=== PATIENT | female | born 1960 | race Caucasian/White ===

== ENCOUNTER → 2023-11-15 13:12 | Outpatient (REF) | payer MEDICARE, OTHER, SELFPAY ==
[2023-11-15 10:09] LABS: % Basophils 0.3 % (0-2); % Eosinophils 1.9 % (0-6); % Lymphocytes 13.6 % (20.5-51.1); % Monocytes 9.8 % (1.7-9.3); % Neutrophils 74.4 % (42.2-75.2); Absolute Eosinophils 0.1 10^3/uL (0-0.7); Absolute Lymphocytes 0.8 10^3/uL (1.2-3.4); Absolute Monocytes 0.6 10^3/uL (0.1-0.6); Absolute Neutrophils 4.3 10^3/uL (1.4-6.5); Hematocrit 37.6 % (37.0-47.0); Hemoglobin 12.5 g/dL (12.0-16.0); Mean Corp Hgb Conc. 33.2 g/dL (33.0-37.0); Mean Corpuscular Volume 99.2 fL (81.0-99.0); Mean Platelet Volume 10.6 fL (7.4-10.4); Platelet Count 142 10^3/uL (130-400); Red Blood Cell Count 3.79 10^6/uL (4.20-5.40); Red Cell Dist. Width 13.4 % (11.5-14.5); White Blood Cell Count 5.8 10^3/uL (4.8-10.8)
[2023-11-15 10:50] LABS: ALT (SGPT) 30 U/L (0-35); AST (SGOT) 54 U/L (14-36); Albumin 4.1 g/dl (3.5-5.0); Alkaline Phosphatase 157 U/L (38-126); Blood Urea Nitrogen 14 mg/dl (7-17); Calcium 9.2 mg/dl (8.4-10.2); Carbon Dioxide 26 mmol/L (22-30); Chloride 108 mmol/L (98-107); Glucose 99 mg/dl (70-99); Potassium 3.9 mmol/L (3.5-5.1); Sodium 139 mmol/L (135-145); Total Bilirubin 1.1 mg/dl (0.2-1.3); Total Protein 7.5 g/dl (6.3-8.2); eGFR > 60.00
== END ==
LOC: OIDL 13:12
PROVIDERS: ATTENDING PHYSICIAN Internal Medicine Hematology & Oncology
DX: C50.912 Malignant neoplasm of unspecified site of left female breast (principal)
CPT/HCPCS: 80053; 85025

== ENCOUNTER → 2023-12-06 09:54 | Outpatient (REF) | payer MEDICARE, OTHER, SELFPAY ==
[2023-12-06 10:04] LABS: % Basophils 0.5 % (0-2); % Eosinophils 3.5 % (0-6); % Lymphocytes 21.6 % (20.5-51.1); % Monocytes 9.7 % (1.7-9.3); % Neutrophils 64.7 % (42.2-75.2); Absolute Eosinophils 0.1 10^3/uL (0-0.7); Absolute Lymphocytes 0.8 10^3/uL (1.2-3.4); Absolute Monocytes 0.4 10^3/uL (0.1-0.6); Absolute Neutrophils 2.4 10^3/uL (1.4-6.5); Hematocrit 36.5 % (37.0-47.0); Hemoglobin 12.3 g/dL (12.0-16.0); Mean Corp Hgb Conc. 33.7 g/dL (33.0-37.0); Mean Corpuscular Hgb 32.8 pg (27.0-31.0); Mean Corpuscular Volume 97.3 fL (81.0-99.0); Mean Platelet Volume 10.5 fL (7.4-10.4); Platelet Count 130 10^3/uL (130-400); Red Blood Cell Count 3.75 10^6/uL (4.20-5.40); Red Cell Dist. Width 13.9 % (11.5-14.5); White Blood Cell Count 3.7 10^3/uL (4.8-10.8)
[2023-12-06 10:52] LABS: ALT (SGPT) 36 U/L (0-35); AST (SGOT) 55 U/L (14-36); Albumin 4.1 g/dl (3.5-5.0); Alkaline Phosphatase 149 U/L (38-126); Blood Urea Nitrogen 15 mg/dl (7-17); Calcium 9.1 mg/dl (8.4-10.2); Carbon Dioxide 23 mmol/L (22-30); Chloride 109 mmol/L (98-107); Glucose 109 mg/dl (70-99); Potassium 3.7 mmol/L (3.5-5.1); Sodium 139 mmol/L (135-145); Total Protein 7.3 g/dl (6.3-8.2); eGFR > 60.00
== END ==
LOC: OIDL 09:54
PROVIDERS: ATTENDING PHYSICIAN Internal Medicine Hematology & Oncology
DX: C50.912 Malignant neoplasm of unspecified site of left female breast (principal); C77.0 Secondary and unspecified malignant neoplasm of lymph nodes of head, face and neck
CPT/HCPCS: 80053; 85025

== ENCOUNTER → 2023-12-27 11:44 | Outpatient (REF) | payer MEDICARE, OTHER, SELFPAY ==
[2023-12-27 09:32] LABS: % Basophils 0.5 % (0-2); % Eosinophils 4.3 % (0-6); % Immature Granulocytes 0.3 % (0-0.5); % Lymphocytes 27.9 % (20.5-51.1); % Monocytes 12.3 % (1.7-9.3); % Neutrophils 54.7 % (42.2-75.2); Absolute Eosinophils 0.2 10^3/uL (0-0.7); Absolute Monocytes 0.5 10^3/uL (0.1-0.6); Hematocrit 37.1 % (37.0-47.0); Hemoglobin 12.6 g/dL (12.0-16.0); Mean Corpuscular Hgb 32.8 pg (27.0-31.0); Mean Corpuscular Volume 96.6 fL (81.0-99.0); Mean Platelet Volume 9.9 fL (7.4-10.4); Platelet Count 135 10^3/uL (130-400); Red Blood Cell Count 3.84 10^6/uL (4.20-5.40); Red Cell Dist. Width 14.5 % (11.5-14.5); White Blood Cell Count 3.7 10^3/uL (4.8-10.8)
[2023-12-27 10:16] LABS: ALT (SGPT) 49 U/L (0-35); AST (SGOT) 64 U/L (14-36); Albumin 4.2 g/dl (3.5-5.0); Alkaline Phosphatase 164 U/L (38-126); Blood Urea Nitrogen 12 mg/dl (7-17); Calcium 9.4 mg/dl (8.4-10.2); Carbon Dioxide 26 mmol/L (22-30); Chloride 107 mmol/L (98-107); Glucose 106 mg/dl (70-99); Potassium 3.7 mmol/L (3.5-5.1); Sodium 138 mmol/L (135-145); Total Bilirubin 1.2 mg/dl (0.2-1.3); Total Protein 7.4 g/dl (6.3-8.2); eGFR > 60.00
== END ==
LOC: OIDL 11:44
PROVIDERS: ATTENDING PHYSICIAN Internal Medicine Hematology & Oncology
DX: C50.912 Malignant neoplasm of unspecified site of left female breast (principal)
CPT/HCPCS: 80053; 85025

== ENCOUNTER → 2024-01-17 16:04 | Outpatient (REF) | payer MEDICARE, OTHER, SELFPAY ==
[2024-01-17 09:30] LABS: % Basophils 0.5 % (0-2); % Eosinophils 5.9 % (0-6); % Immature Granulocytes 0.3 % (0-0.5); % Lymphocytes 21.2 % (20.5-51.1); % Monocytes 13.1 % (1.7-9.3); Absolute Eosinophils 0.2 10^3/uL (0-0.7); Absolute Lymphocytes 0.8 10^3/uL (1.2-3.4); Absolute Monocytes 0.5 10^3/uL (0.1-0.6); Absolute Neutrophils 2.2 10^3/uL (1.4-6.5); Hematocrit 36.4 % (37.0-47.0); Hemoglobin 12.4 g/dL (12.0-16.0); Mean Corp Hgb Conc. 34.1 g/dL (33.0-37.0); Mean Corpuscular Hgb 32.9 pg (27.0-31.0); Mean Corpuscular Volume 96.6 fL (81.0-99.0); Mean Platelet Volume 10.2 fL (7.4-10.4); Platelet Count 127 10^3/uL (130-400); Red Blood Cell Count 3.77 10^6/uL (4.20-5.40); Red Cell Dist. Width 15.5 % (11.5-14.5); White Blood Cell Count 3.7 10^3/uL (4.8-10.8)
[2024-01-17 10:03] LABS: ALT (SGPT) 42 U/L (0-35); AST (SGOT) 58 U/L (14-36); Albumin 4.1 g/dl (3.5-5.0); Alkaline Phosphatase 170 U/L (38-126); Blood Urea Nitrogen 11 mg/dl (7-17); Calcium 9.4 mg/dl (8.4-10.2); Carbon Dioxide 25 mmol/L (22-30); Chloride 106 mmol/L (98-107); Glucose 94 mg/dl (70-99); Potassium 3.9 mmol/L (3.5-5.1); Sodium 137 mmol/L (135-145); Total Bilirubin 1.3 mg/dl (0.2-1.3); Total Protein 7.2 g/dl (6.3-8.2); eGFR > 60.00
== END ==
LOC: OIDL 16:04
PROVIDERS: ATTENDING PHYSICIAN Internal Medicine Hematology & Oncology
DX: C50.912 Malignant neoplasm of unspecified site of left female breast (principal)
CPT/HCPCS: 80053; 85025

== ENCOUNTER → 2024-01-26 10:45 | Outpatient (REF) | payer MEDICARE, OTHER, SELFPAY | LOC: RCS 10:45 | PROVIDERS: ATTENDING PHYSICIAN Internal Medicine Hematology & Oncology | DX: Z51.11 Encounter for antineoplastic chemotherapy (principal); C50.912 Malignant neoplasm of unspecified site of left female breast; C77.0 Secondary and unspecified malignant neoplasm of lymph nodes of head, face and neck; C78.00 Secondary malignant neoplasm of unspecified lung; D50.9 Iron deficiency anemia, unspecified; D51.9 Vitamin B12 deficiency anemia, unspecified | CPT/HCPCS: 93306 ==

== ENCOUNTER → 2024-02-07 10:42 | Outpatient (REF) | payer MEDICARE, OTHER, SELFPAY ==
[2024-02-07 10:44] LABS: % Basophils 0.5 % (0-2); % Eosinophils 3.5 % (0-6); % Monocytes 14.1 % (1.7-9.3); % Neutrophils 54.9 % (42.2-75.2); Absolute Eosinophils 0.1 10^3/uL (0-0.7); Absolute Lymphocytes 1.1 10^3/uL (1.2-3.4); Absolute Monocytes 0.6 10^3/uL (0.1-0.6); Absolute Neutrophils 2.2 10^3/uL (1.4-6.5); Hemoglobin 11.5 g/dL (12.0-16.0); Mean Corp Hgb Conc. 33.8 g/dL (33.0-37.0); Mean Corpuscular Hgb 32.9 pg (27.0-31.0); Mean Corpuscular Volume 97.1 fL (81.0-99.0); Mean Platelet Volume 10.3 fL (7.4-10.4); Platelet Count 139 10^3/uL (130-400); Red Cell Dist. Width 16.7 % (11.5-14.5)
[2024-02-07 11:34] LABS: ALT (SGPT) 19 U/L (0-35); AST (SGOT) 28 U/L (14-36); Albumin 3.8 g/dl (3.5-5.0); Alkaline Phosphatase 111 U/L (38-126); Blood Urea Nitrogen 22 mg/dl (7-17); Calcium 9.8 mg/dl (8.4-10.2); Carbon Dioxide 26 mmol/L (22-30); Chloride 106 mmol/L (98-107); Glucose 81 mg/dl (70-99); Potassium 4.7 mmol/L (3.5-5.1); Sodium 139 mmol/L (135-145); Total Bilirubin 0.3 mg/dl (0.2-1.3); Total Protein 6.2 g/dl (6.3-8.2); eGFR > 60.00
== END ==
LOC: OIDL 10:42
PROVIDERS: ATTENDING PHYSICIAN Nurse Practitioner Adult Health
DX: C50.912 Malignant neoplasm of unspecified site of left female breast (principal); C77.0 Secondary and unspecified malignant neoplasm of lymph nodes of head, face and neck; C78.00 Secondary malignant neoplasm of unspecified lung; D50.9 Iron deficiency anemia, unspecified; D51.9 Vitamin B12 deficiency anemia, unspecified
CPT/HCPCS: 80053; 85025

== ENCOUNTER → 2024-02-28 13:43 | Outpatient (REF) | payer MEDICARE, OTHER, SELFPAY ==
[2024-02-28 09:50] LABS: % Basophils 0.2 % (0-2); % Eosinophils 2.4 % (0-6); % Immature Granulocytes 0.2 % (0-0.5); % Lymphocytes 15.7 % (20.5-51.1); % Monocytes 10.6 % (1.7-9.3); % Neutrophils 70.9 % (42.2-75.2); Absolute Eosinophils 0.1 10^3/uL (0-0.7); Absolute Lymphocytes 0.8 10^3/uL (1.2-3.4); Absolute Monocytes 0.5 10^3/uL (0.1-0.6); Absolute Neutrophils 3.6 10^3/uL (1.4-6.5); Hematocrit 32.4 % (37.0-47.0); Hemoglobin 11.1 g/dL (12.0-16.0); Mean Corp Hgb Conc. 34.3 g/dL (33.0-37.0); Mean Corpuscular Hgb 33.6 pg (27.0-31.0); Mean Corpuscular Volume 98.2 fL (81.0-99.0); Mean Platelet Volume 10.9 fL (7.4-10.4); Platelet Count 146 10^3/uL (130-400); Red Cell Dist. Width 15.8 % (11.5-14.5); White Blood Cell Count 5.1 10^3/uL (4.8-10.8)
[2024-02-28 10:26] LABS: ALT (SGPT) 37 U/L (0-35); AST (SGOT) 48 U/L (14-36); Albumin 3.8 g/dl (3.5-5.0); Alkaline Phosphatase 112 U/L (38-126); Blood Urea Nitrogen 15 mg/dl (7-17); Calcium 8.9 mg/dl (8.4-10.2); Carbon Dioxide 25 mmol/L (22-30); Chloride 108 mmol/L (98-107); Glucose 130 mg/dl (70-99); Potassium 4.1 mmol/L (3.5-5.1); Sodium 141 mmol/L (135-145); Total Bilirubin 1.1 mg/dl (0.2-1.3); eGFR > 60.00
== END ==
LOC: OIDL 13:43
PROVIDERS: ATTENDING PHYSICIAN Internal Medicine Hematology & Oncology
DX: C50.912 Malignant neoplasm of unspecified site of left female breast (principal)
CPT/HCPCS: 80053; 85025

== ENCOUNTER → 2024-04-11 14:00 | Outpatient (REF) | payer MEDICARE, OTHER, SELFPAY ==
[2024-04-11 14:04] LABS: % Basophils 0.6 % (0-2); % Eosinophils 3.3 % (0-6); % Immature Granulocytes 0.2 % (0-0.5); % Lymphocytes 22.6 % (20.5-51.1); % Monocytes 11.5 % (1.7-9.3); % Neutrophils 61.8 % (42.2-75.2); Absolute Eosinophils 0.2 10^3/uL (0-0.7); Absolute Lymphocytes 1.2 10^3/uL (1.2-3.4); Absolute Monocytes 0.6 10^3/uL (0.1-0.6); Absolute Neutrophils 3.2 10^3/uL (1.4-6.5); Hematocrit 37.4 % (37.0-47.0); Hemoglobin 12.2 g/dL (12.0-16.0); Mean Corp Hgb Conc. 32.6 g/dL (33.0-37.0); Mean Corpuscular Hgb 32.5 pg (27.0-31.0); Mean Corpuscular Volume 99.7 fL (81.0-99.0); Mean Platelet Volume 10.6 fL (7.4-10.4); Platelet Count 119 10^3/uL (130-400); Red Blood Cell Count 3.75 10^6/uL (4.20-5.40); Red Cell Dist. Width 13.9 % (11.5-14.5); White Blood Cell Count 5.2 10^3/uL (4.8-10.8)
[2024-04-11 14:47] LABS: ALT (SGPT) 32 U/L (0-35); AST (SGOT) 52 U/L (14-36); Albumin 4.1 g/dl (3.5-5.0); Alkaline Phosphatase 146 U/L (38-126); Blood Urea Nitrogen 15 mg/dl (7-17); Calcium 9.2 mg/dl (8.4-10.2); Carbon Dioxide 26 mmol/L (22-30); Chloride 105 mmol/L (98-107); Glucose 94 mg/dl (70-99); Potassium 3.9 mmol/L (3.5-5.1); Sodium 139 mmol/L (135-145); Total Bilirubin 1.1 mg/dl (0.2-1.3); eGFR > 60.00
== END ==
LOC: OIDL 14:00
PROVIDERS: ATTENDING PHYSICIAN Internal Medicine Hematology & Oncology
DX: C50.912 Malignant neoplasm of unspecified site of left female breast (principal)
CPT/HCPCS: 80053; 85025

== ENCOUNTER → 2024-04-26 08:17 | Outpatient (REF) | payer MEDICARE, OTHER, SELFPAY | LOC: HWRAD 08:17 | PROVIDERS: ATTENDING PHYSICIAN Internal Medicine Hematology & Oncology; FAMILY PHYSICIAN Family Medicine | DX: C50.912 Malignant neoplasm of unspecified site of left female breast (principal); C77.0 Secondary and unspecified malignant neoplasm of lymph nodes of head, face and neck; C78.00 Secondary malignant neoplasm of unspecified lung; D50.9 Iron deficiency anemia, unspecified; D51.9 Vitamin B12 deficiency anemia, unspecified | CPT/HCPCS: 70491; 71260; 74177; Q9967 ==

== ENCOUNTER → 2024-05-01 16:24 | Outpatient (REF) | payer MEDICARE, OTHER, SELFPAY ==
[2024-05-01 13:19] LABS: % Basophils 0.5 % (0-2); % Eosinophils 3.6 % (0-6); % Immature Granulocytes 0.2 % (0-0.5); % Lymphocytes 26.3 % (20.5-51.1); % Neutrophils 57.4 % (42.2-75.2); Absolute Eosinophils 0.2 10^3/uL (0-0.7); Absolute Lymphocytes 1.1 10^3/uL (1.2-3.4); Absolute Monocytes 0.5 10^3/uL (0.1-0.6); Absolute Neutrophils 2.4 10^3/uL (1.4-6.5); Hemoglobin 12.3 g/dL (12.0-16.0); Mean Corp Hgb Conc. 33.2 g/dL (33.0-37.0); Mean Corpuscular Hgb 32.4 pg (27.0-31.0); Mean Corpuscular Volume 97.4 fL (81.0-99.0); Platelet Count 122 10^3/uL (130-400); White Blood Cell Count 4.2 10^3/uL (4.8-10.8)
[2024-05-01 14:03] LABS: ALT (SGPT) 34 U/L (0-35); AST (SGOT) 49 U/L (14-36); Albumin 4.1 g/dl (3.5-5.0); Alkaline Phosphatase 147 U/L (38-126); Blood Urea Nitrogen 17 mg/dl (7-17); Calcium 9.4 mg/dl (8.4-10.2); Carbon Dioxide 28 mmol/L (22-30); Chloride 107 mmol/L (98-107); Glucose 105 mg/dl (70-99); Potassium 4.1 mmol/L (3.5-5.1); Sodium 140 mmol/L (135-145); Total Bilirubin 0.8 mg/dl (0.2-1.3); eGFR > 60.00
== END ==
LOC: OIDL 16:24
PROVIDERS: ATTENDING PHYSICIAN Internal Medicine Hematology & Oncology
DX: C50.912 Malignant neoplasm of unspecified site of left female breast (principal)
CPT/HCPCS: 80053; 85025

== ENCOUNTER → 2024-05-23 12:34 | Outpatient (REF) | payer MEDICARE, OTHER, SELFPAY ==
[2024-05-23 12:43] LABS: % Basophils 0.5 % (0-2); % Eosinophils 3.3 % (0-6); % Immature Granulocytes 0.2 % (0-0.5); % Lymphocytes 24.6 % (20.5-51.1); % Monocytes 12.8 % (1.7-9.3); % Neutrophils 58.6 % (42.2-75.2); Absolute Eosinophils 0.1 10^3/uL (0-0.7); Absolute Monocytes 0.5 10^3/uL (0.1-0.6); Absolute Neutrophils 2.5 10^3/uL (1.4-6.5); Hematocrit 35.7 % (37.0-47.0); Hemoglobin 12.5 g/dL (12.0-16.0); Mean Corpuscular Hgb 32.8 pg (27.0-31.0); Mean Corpuscular Volume 93.7 fL (81.0-99.0); Mean Platelet Volume 10.7 fL (7.4-10.4); Nucleated Red Blood Cells % 0 %; Platelet Count 122 10^3/uL (130-400); Red Blood Cell Count 3.81 10^6/uL (4.20-5.40); Red Cell Dist. Width 14.6 % (11.5-14.5); White Blood Cell Count 4.2 10^3/uL (4.8-10.8)
[2024-05-23 12:55] LABS: ALT (SGPT) 36 U/L (0-35); AST (SGOT) 56 U/L (14-36); Albumin 4.3 g/dl (3.5-5.0); Alkaline Phosphatase 161 U/L (38-126); Blood Urea Nitrogen 11 mg/dl (7-17); Calcium 9.2 mg/dl (8.4-10.2); Carbon Dioxide 26 mmol/L (22-30); Chloride 106 mmol/L (98-107); Glucose 120 mg/dl (70-99); Potassium 3.9 mmol/L (3.5-5.1); Sodium 143 mmol/L (135-145); Total Protein 7.2 g/dl (6.3-8.2); eGFR > 60.00
== END ==
LOC: OIDL 12:34
PROVIDERS: ATTENDING PHYSICIAN Internal Medicine Hematology & Oncology
DX: C50.912 Malignant neoplasm of unspecified site of left female breast (principal)
CPT/HCPCS: 80053; 85025

== ENCOUNTER → 2024-06-12 16:39 | Outpatient (REF) | payer MEDICARE, OTHER, SELFPAY ==
[2024-06-12 11:07] LABS: % Basophils 0.3 % (0-2); % Eosinophils 3.6 % (0-6); % Immature Granulocytes 0.3 % (0-0.5); % Monocytes 13.9 % (1.7-9.3); % Neutrophils 56.9 % (42.2-75.2); Absolute Eosinophils 0.1 10^3/uL (0-0.7); Absolute Lymphocytes 0.9 10^3/uL (1.2-3.4); Absolute Monocytes 0.5 10^3/uL (0.1-0.6); Absolute Neutrophils 2.1 10^3/uL (1.4-6.5); Hematocrit 35.3 % (37.0-47.0); Mean Corpuscular Hgb 32.3 pg (27.0-31.0); Mean Corpuscular Volume 95.1 fL (81.0-99.0); Mean Platelet Volume 10.4 fL (7.4-10.4); Platelet Count 136 10^3/uL (130-400); Red Blood Cell Count 3.71 10^6/uL (4.20-5.40); Red Cell Dist. Width 15.5 % (11.5-14.5); White Blood Cell Count 3.6 10^3/uL (4.8-10.8)
[2024-06-12 12:05] LABS: ALT (SGPT) 50 U/L (0-35); AST (SGOT) 68 U/L (14-36); Albumin 4.2 g/dl (3.5-5.0); Alkaline Phosphatase 136 U/L (38-126); Blood Urea Nitrogen 11 mg/dl (7-17); Calcium 9.1 mg/dl (8.4-10.2); Carbon Dioxide 26 mmol/L (22-30); Chloride 104 mmol/L (98-107); Glucose 105 mg/dl (70-99); Potassium 4.3 mmol/L (3.5-5.1); Sodium 141 mmol/L (135-145); Total Bilirubin 1.1 mg/dl (0.2-1.3); Total Protein 6.9 g/dl (6.3-8.2); eGFR > 60.00
== END ==
LOC: OIDL 16:39
PROVIDERS: ATTENDING PHYSICIAN Internal Medicine Hematology & Oncology
DX: C50.912 Malignant neoplasm of unspecified site of left female breast (principal)
CPT/HCPCS: 80053; 85025

== ENCOUNTER → 2024-07-04 15:30 | Outpatient (REF) | payer MEDICARE, OTHER, SELFPAY ==
[2024-07-04 10:47] LABS: % Basophils 0.5 % (0-2); % Immature Granulocytes 0.2 % (0-0.5); % Lymphocytes 21.1 % (20.5-51.1); % Neutrophils 65.2 % (42.2-75.2); Absolute Eosinophils 0.1 10^3/uL (0-0.7); Absolute Lymphocytes 0.9 10^3/uL (1.2-3.4); Absolute Monocytes 0.4 10^3/uL (0.1-0.6); Absolute Neutrophils 2.6 10^3/uL (1.4-6.5); Hematocrit 36.3 % (37.0-47.0); Hemoglobin 12.2 g/dL (12.0-16.0); Mean Corp Hgb Conc. 33.6 g/dL (33.0-37.0); Mean Corpuscular Hgb 32.4 pg (27.0-31.0); Mean Corpuscular Volume 96.5 fL (81.0-99.0); Mean Platelet Volume 10.6 fL (7.4-10.4); Platelet Count 117 10^3/uL (130-400); Red Blood Cell Count 3.76 10^6/uL (4.20-5.40); Red Cell Dist. Width 16.3 % (11.5-14.5)
[2024-07-04 11:51] LABS: ALT (SGPT) 46 U/L (0-35); AST (SGOT) 69 U/L (14-36); Alkaline Phosphatase 164 U/L (38-126); Blood Urea Nitrogen 10 mg/dl (7-17); Calcium 9.1 mg/dl (8.4-10.2); Carbon Dioxide 24 mmol/L (22-30); Chloride 108 mmol/L (98-107); Glucose 109 mg/dl (70-99); Potassium 3.7 mmol/L (3.5-5.1); Sodium 142 mmol/L (135-145); Total Bilirubin 1.6 mg/dl (0.2-1.3); Total Protein 6.8 g/dl (6.3-8.2); eGFR > 60.00
== END ==
LOC: OIDL 15:30
PROVIDERS: ATTENDING PHYSICIAN Internal Medicine Hematology & Oncology
DX: C50.912 Malignant neoplasm of unspecified site of left female breast (principal); C77.0 Secondary and unspecified malignant neoplasm of lymph nodes of head, face and neck; C78.00 Secondary malignant neoplasm of unspecified lung; D50.9 Iron deficiency anemia, unspecified; D51.9 Vitamin B12 deficiency anemia, unspecified
CPT/HCPCS: 80053; 85025

== ENCOUNTER → 2024-07-25 08:54 | Outpatient (REF) | payer MEDICARE, OTHER, SELFPAY ==
[2024-07-25 08:56] LABS: % Basophils 0.3 % (0-2); % Eosinophils 4.6 % (0-6); % Immature Granulocytes 0.3 % (0-0.5); % Lymphocytes 26.3 % (20.5-51.1); % Monocytes 12.7 % (1.7-9.3); % Neutrophils 55.8 % (42.2-75.2); Absolute Eosinophils 0.2 10^3/uL (0-0.7); Absolute Monocytes 0.5 10^3/uL (0.1-0.6); Absolute Neutrophils 2.1 10^3/uL (1.4-6.5); Hematocrit 34.4 % (37.0-47.0); Hemoglobin 11.5 g/dL (12.0-16.0); Mean Corp Hgb Conc. 33.4 g/dL (33.0-37.0); Mean Corpuscular Volume 98.6 fL (81.0-99.0); Mean Platelet Volume 10.9 fL (7.4-10.4); Platelet Count 123 10^3/uL (130-400); Red Blood Cell Count 3.49 10^6/uL (4.20-5.40); Red Cell Dist. Width 16.2 % (11.5-14.5); White Blood Cell Count 3.7 10^3/uL (4.8-10.8)
[2024-07-25 10:52] LABS: ALT (SGPT) 55 U/L (0-35); AST (SGOT) 69 U/L (14-36); Albumin 3.9 g/dl (3.5-5.0); Alkaline Phosphatase 152 U/L (38-126); Blood Urea Nitrogen 13 mg/dl (7-17); Carbon Dioxide 24 mmol/L (22-30); Chloride 108 mmol/L (98-107); Glucose 91 mg/dl (70-99); Potassium 3.7 mmol/L (3.5-5.1); Sodium 144 mmol/L (135-145); Total Bilirubin 1.2 mg/dl (0.2-1.3); eGFR > 60.00
== END ==
LOC: OIDL 08:54
PROVIDERS: ATTENDING PHYSICIAN Internal Medicine Hematology & Oncology
DX: C50.912 Malignant neoplasm of unspecified site of left female breast (principal); C77.0 Secondary and unspecified malignant neoplasm of lymph nodes of head, face and neck; C78.00 Secondary malignant neoplasm of unspecified lung; D50.9 Iron deficiency anemia, unspecified; D51.9 Vitamin B12 deficiency anemia, unspecified; K76.6 Portal hypertension
CPT/HCPCS: 80053; 85025

== ENCOUNTER → 2024-08-15 14:54 | Outpatient (REF) | payer MEDICARE, OTHER, SELFPAY ==
[2024-08-15 10:30] LABS: % Basophils 0.8 % (0-2); % Eosinophils 4.9 % (0-6); % Lymphocytes 24.9 % (20.5-51.1); % Monocytes 11.9 % (1.7-9.3); % Neutrophils 57.5 % (42.2-75.2); Absolute Eosinophils 0.2 10^3/uL (0-0.7); Absolute Lymphocytes 0.9 10^3/uL (1.2-3.4); Absolute Monocytes 0.4 10^3/uL (0.1-0.6); Absolute Neutrophils 2.1 10^3/uL (1.4-6.5); Hematocrit 35.5 % (37.0-47.0); Hemoglobin 11.8 g/dL (12.0-16.0); Mean Corp Hgb Conc. 33.2 g/dL (33.0-37.0); Mean Corpuscular Hgb 33.8 pg (27.0-31.0); Mean Corpuscular Volume 101.7 fL (81.0-99.0); Mean Platelet Volume 10.7 fL (7.4-10.4); Platelet Count 127 10^3/uL (130-400); Red Blood Cell Count 3.49 10^6/uL (4.20-5.40); Red Cell Dist. Width 15.7 % (11.5-14.5); White Blood Cell Count 3.7 10^3/uL (4.8-10.8)
[2024-08-15 11:21] LABS: ALT (SGPT) 46 U/L (0-35); AST (SGOT) 60 U/L (14-36); Albumin 3.9 g/dl (3.5-5.0); Alkaline Phosphatase 150 U/L (38-126); Blood Urea Nitrogen 11 mg/dl (7-17); Calcium 8.8 mg/dl (8.4-10.2); Carbon Dioxide 24 mmol/L (22-30); Chloride 107 mmol/L (98-107); Glucose 99 mg/dl (70-99); Potassium 4.2 mmol/L (3.5-5.1); Sodium 142 mmol/L (135-145); Total Bilirubin 1.1 mg/dl (0.2-1.3); Total Protein 6.9 g/dl (6.3-8.2); eGFR > 60.00
== END ==
LOC: OIDL 14:54
PROVIDERS: ATTENDING PHYSICIAN Internal Medicine Hematology & Oncology
DX: C50.912 Malignant neoplasm of unspecified site of left female breast (principal)
CPT/HCPCS: 80053; 85025

== ENCOUNTER → 2024-08-29 11:14 | Outpatient (REF) | payer MEDICARE, OTHER, SELFPAY ==
[2024-08-29 08:49] LABS: % Basophils 0.4 % (0-2); % Eosinophils 2.8 % (0-6); % Immature Granulocytes 0.2 % (0-0.5); % Monocytes 11.3 % (1.7-9.3); % Neutrophils 62.3 % (42.2-75.2); Absolute Eosinophils 0.1 10^3/uL (0-0.7); Absolute Lymphocytes 1.1 10^3/uL (1.2-3.4); Absolute Monocytes 0.5 10^3/uL (0.1-0.6); Absolute Neutrophils 2.9 10^3/uL (1.4-6.5); Hematocrit 39.1 % (37.0-47.0); Hemoglobin 13.1 g/dL (12.0-16.0); Mean Corp Hgb Conc. 33.5 g/dL (33.0-37.0); Mean Corpuscular Hgb 32.7 pg (27.0-31.0); Mean Corpuscular Volume 97.5 fL (81.0-99.0); Platelet Count 130 10^3/uL (130-400); Red Blood Cell Count 4.01 10^6/uL (4.20-5.40); Red Cell Dist. Width 13.8 % (11.5-14.5); White Blood Cell Count 4.6 10^3/uL (4.8-10.8)
[2024-08-29 10:04] LABS: ALT (SGPT) 32 U/L (0-35); AST (SGOT) 51 U/L (14-36); Albumin 4.1 g/dl (3.5-5.0); Alkaline Phosphatase 149 U/L (38-126); Blood Urea Nitrogen 11 mg/dl (7-17); Calcium 9.1 mg/dl (8.4-10.2); Carbon Dioxide 29 mmol/L (22-30); Chloride 106 mmol/L (98-107); Glucose 92 mg/dl (70-99); Potassium 3.8 mmol/L (3.5-5.1); Sodium 142 mmol/L (135-145); Total Protein 7.3 g/dl (6.3-8.2); eGFR > 60.00
== END ==
LOC: OIDL 11:14
PROVIDERS: ATTENDING PHYSICIAN Internal Medicine Hematology & Oncology
DX: C50.912 Malignant neoplasm of unspecified site of left female breast (principal)
CPT/HCPCS: 80053; 85025

== ENCOUNTER → 2024-10-31 12:14 | Outpatient (REF) | payer MEDICARE, OTHER, SELFPAY ==
[2024-10-31 09:46] LABS: % Basophils 0.5 % (0-2); % Eosinophils 2.5 % (0-6); % Lymphocytes 21.7 % (20.5-51.1); % Neutrophils 66.3 % (42.2-75.2); Absolute Eosinophils 0.2 10^3/uL (0-0.7); Absolute Lymphocytes 1.3 10^3/uL (1.2-3.4); Absolute Monocytes 0.5 10^3/uL (0.1-0.6); Absolute Neutrophils 3.9 10^3/uL (1.4-6.5); Hematocrit 41.8 % (37.0-47.0); Hemoglobin 13.5 g/dL (12.0-16.0); Mean Corp Hgb Conc. 32.3 g/dL (33.0-37.0); Mean Corpuscular Hgb 30.5 pg (27.0-31.0); Mean Corpuscular Volume 94.6 fL (81.0-99.0); Mean Platelet Volume 10.6 fL (7.4-10.4); Platelet Count 129 10^3/uL (130-400); Red Blood Cell Count 4.42 10^6/uL (4.20-5.40); Red Cell Dist. Width 13.4 % (11.5-14.5); White Blood Cell Count 5.9 10^3/uL (4.8-10.8)
[2024-10-31 10:44] LABS: ALT (SGPT) 28 U/L (0-35); AST (SGOT) 46 U/L (14-36); Albumin 4.3 g/dl (3.5-5.0); Alkaline Phosphatase 143 U/L (38-126); Blood Urea Nitrogen 15 mg/dl (7-17); Calcium 9.3 mg/dl (8.4-10.2); Carbon Dioxide 26 mmol/L (22-30); Chloride 103 mmol/L (98-107); Glucose 96 mg/dl (70-99); Potassium 3.8 mmol/L (3.5-5.1); Sodium 139 mmol/L (135-145); Total Bilirubin 1.4 mg/dl (0.2-1.3); Total Protein 7.3 g/dl (6.3-8.2); eGFR > 60.00
== END ==
LOC: OIDL 12:14
PROVIDERS: ATTENDING PHYSICIAN Internal Medicine Hematology & Oncology
DX: C50.912 Malignant neoplasm of unspecified site of left female breast (principal)
CPT/HCPCS: 80053; 85025

== ENCOUNTER → 2024-11-15 10:40 | Outpatient (REF) | payer MEDICARE, OTHER, SELFPAY | LOC: RCS 10:40 | PROVIDERS: ATTENDING PHYSICIAN Internal Medicine Hematology & Oncology; FAMILY PHYSICIAN Family Medicine | DX: C78.00 Secondary malignant neoplasm of unspecified lung (principal); C50.912 Malignant neoplasm of unspecified site of left female breast; C77.0 Secondary and unspecified malignant neoplasm of lymph nodes of head, face and neck | CPT/HCPCS: 93306 ==

== ENCOUNTER → 2024-11-21 13:26 | Outpatient (REF) | payer MEDICARE, OTHER, SELFPAY ==
[2024-11-21 11:20] LABS: % Basophils 0.2 % (0-2); % Eosinophils 3.1 % (0-6); % Immature Granulocytes 0.2 % (0-0.5); % Lymphocytes 27.4 % (20.5-51.1); % Monocytes 13.3 % (1.7-9.3); % Neutrophils 55.8 % (42.2-75.2); Absolute Eosinophils 0.1 10^3/uL (0-0.7); Absolute Lymphocytes 1.2 10^3/uL (1.2-3.4); Absolute Monocytes 0.6 10^3/uL (0.1-0.6); Absolute Neutrophils 2.3 10^3/uL (1.4-6.5); Hematocrit 39.5 % (37.0-47.0); Mean Corp Hgb Conc. 32.9 g/dL (33.0-37.0); Mean Corpuscular Hgb 30.4 pg (27.0-31.0); Mean Corpuscular Volume 92.5 fL (81.0-99.0); Mean Platelet Volume 9.9 fL (7.4-10.4); Platelet Count 152 10^3/uL (130-400); Red Blood Cell Count 4.27 10^6/uL (4.20-5.40); Red Cell Dist. Width 14.4 % (11.5-14.5); White Blood Cell Count 4.2 10^3/uL (4.8-10.8)
[2024-11-21 11:42] LABS: ALT (SGPT) 34 U/L (0-35); AST (SGOT) 45 U/L (14-36); Alkaline Phosphatase 157 U/L (38-126); Blood Urea Nitrogen 11 mg/dl (7-17); Calcium 9.1 mg/dl (8.4-10.2); Carbon Dioxide 25 mmol/L (22-30); Chloride 106 mmol/L (98-107); Glucose 142 mg/dl (70-99); Potassium 3.8 mmol/L (3.5-5.1); Sodium 138 mmol/L (135-145); Total Bilirubin 0.9 mg/dl (0.2-1.3); Total Protein 7.5 g/dl (6.3-8.2); eGFR > 60.00
== END ==
LOC: OIDL 13:26
PROVIDERS: ATTENDING PHYSICIAN Internal Medicine Hematology & Oncology
DX: C50.912 Malignant neoplasm of unspecified site of left female breast (principal)
CPT/HCPCS: 80053; 85025

== ENCOUNTER → 2024-12-12 14:42 | Outpatient (REF) | payer MEDICARE, OTHER, SELFPAY ==
[2024-12-12 14:48] LABS: % Basophils 0.3 % (0-2); % Eosinophils 5.2 % (0-6); % Lymphocytes 28.1 % (20.5-51.1); % Neutrophils 51.4 % (42.2-75.2); Absolute Eosinophils 0.2 10^3/uL (0-0.7); Absolute Lymphocytes 1.1 10^3/uL (1.2-3.4); Absolute Monocytes 0.6 10^3/uL (0.1-0.6); Hematocrit 37.3 % (37.0-47.0); Hemoglobin 12.6 g/dL (12.0-16.0); Mean Corp Hgb Conc. 33.8 g/dL (33.0-37.0); Mean Corpuscular Hgb 30.7 pg (27.0-31.0); Mean Platelet Volume 10.7 fL (7.4-10.4); Platelet Count 132 10^3/uL (130-400); Red Cell Dist. Width 15.9 % (11.5-14.5); White Blood Cell Count 3.8 10^3/uL (4.8-10.8)
[2024-12-12 15:44] LABS: ALT (SGPT) 35 U/L (0-35); AST (SGOT) 48 U/L (14-36); Albumin 4.4 g/dl (3.5-5.0); Alkaline Phosphatase 192 U/L (38-126); Blood Urea Nitrogen 15 mg/dl (7-17); Calcium 9.1 mg/dl (8.4-10.2); Carbon Dioxide 25 mmol/L (22-30); Chloride 104 mmol/L (98-107); Glucose 94 mg/dl (70-99); Sodium 136 mmol/L (135-145); Total Bilirubin 0.9 mg/dl (0.2-1.3); Total Protein 7.5 g/dl (6.3-8.2); eGFR > 60.00
== END ==
LOC: OIDL 14:42
PROVIDERS: ATTENDING PHYSICIAN Internal Medicine Hematology & Oncology
DX: C50.912 Malignant neoplasm of unspecified site of left female breast (principal); C77.0 Secondary and unspecified malignant neoplasm of lymph nodes of head, face and neck; C78.00 Secondary malignant neoplasm of unspecified lung; D50.9 Iron deficiency anemia, unspecified
CPT/HCPCS: 80053; 85025

== ENCOUNTER → 2025-01-02 10:16 | Outpatient (REF) | payer MEDICARE, OTHER, SELFPAY ==
[2025-01-02 08:50] LABS: % Basophils 0.3 % (0-2); % Immature Granulocytes 0.3 % (0-0.5); % Lymphocytes 23.1 % (20.5-51.1); % Monocytes 13.4 % (1.7-9.3); % Neutrophils 58.9 % (42.2-75.2); Absolute Eosinophils 0.1 10^3/uL (0-0.7); Absolute Lymphocytes 0.8 10^3/uL (1.2-3.4); Absolute Monocytes 0.5 10^3/uL (0.1-0.6); Absolute Neutrophils 2.1 10^3/uL (1.4-6.5); Hematocrit 37.2 % (37.0-47.0); Hemoglobin 12.8 g/dL (12.0-16.0); Mean Corp Hgb Conc. 34.4 g/dL (33.0-37.0); Mean Platelet Volume 10.9 fL (7.4-10.4); Platelet Count 130 10^3/uL (130-400); Red Cell Dist. Width 16.9 % (11.5-14.5); White Blood Cell Count 3.5 10^3/uL (4.8-10.8)
[2025-01-02 09:40] LABS: ALT (SGPT) 37 U/L (0-35); AST (SGOT) 47 U/L (14-36); Albumin 4.3 g/dl (3.5-5.0); Alkaline Phosphatase 141 U/L (38-126); Blood Urea Nitrogen 13 mg/dl (7-17); Calcium 9.6 mg/dl (8.4-10.2); Carbon Dioxide 26 mmol/L (22-30); Chloride 107 mmol/L (98-107); Glucose 103 mg/dl (70-99); Potassium 3.8 mmol/L (3.5-5.1); Sodium 142 mmol/L (135-145); Total Bilirubin 1.5 mg/dl (0.2-1.3); Total Protein 7.4 g/dl (6.3-8.2); eGFR > 60.00
== END ==
LOC: OIDL 10:16
PROVIDERS: ATTENDING PHYSICIAN Internal Medicine Hematology & Oncology
DX: C50.912 Malignant neoplasm of unspecified site of left female breast (principal)
CPT/HCPCS: 80053; 85025

== ENCOUNTER → 2025-01-30 14:34 | Outpatient (REF) | payer MEDICARE, OTHER, SELFPAY ==
[2025-01-30 15:21] LABS: INR 0.92; PT 12.8 Sec (11.4-14.6)
[2025-01-30 15:22] LABS: % Basophils 0.4 % (0-2); % Eosinophils 4.6 % (0-6); % Immature Granulocytes 0.4 % (0-0.5); % Lymphocytes 22.3 % (20.5-51.1); % Monocytes 12.2 % (1.7-9.3); % Neutrophils 60.1 % (42.2-75.2); APTT 31.2 Sec (23.4-35.0); Absolute Eosinophils 0.2 10^3/uL (0-0.7); Absolute Lymphocytes 1.1 10^3/uL (1.2-3.4); Absolute Monocytes 0.6 10^3/uL (0.1-0.6); Hematocrit 36.4 % (37.0-47.0); Hemoglobin 12.5 g/dL (12.0-16.0); Mean Corp Hgb Conc. 34.3 g/dL (33.0-37.0); Mean Corpuscular Hgb 32.6 pg (27.0-31.0); Mean Platelet Volume 11.4 fL (7.4-10.4); Nucleated Red Blood Cells % 0 %; Platelet Count 131 10^3/uL (130-400); Red Blood Cell Count 3.83 10^6/uL (4.20-5.40); Red Cell Dist. Width 16.2 % (11.5-14.5)
[2025-01-30 15:34] LABS: ALT (SGPT) 31 U/L (0-35); AST (SGOT) 43 U/L (14-36); Albumin 3.8 g/dl (3.5-5.0); Alkaline Phosphatase 126 U/L (38-126); Blood Urea Nitrogen 15 mg/dl (7-17); Calcium 8.9 mg/dl (8.4-10.2); Carbon Dioxide 30 mmol/L (22-30); Chloride 107 mmol/L (98-107); Glucose 106 mg/dl (70-99); Sodium 142 mmol/L (135-145); Total Bilirubin 0.9 mg/dl (0.2-1.3); Total Protein 7.1 g/dl (6.3-8.2); eGFR > 60.00
[2025-01-30 15:35] LABS: ALT (SGPT) 30 U/L (0-35); AST (SGOT) 43 U/L (14-36); Albumin 3.8 g/dl (3.5-5.0); Alkaline Phosphatase 124 U/L (38-126); Blood Urea Nitrogen 15 mg/dl (7-17); Calcium 8.8 mg/dl (8.4-10.2); Carbon Dioxide 28 mmol/L (22-30); Chloride 108 mmol/L (98-107); Glucose 105 mg/dl (70-99); Sodium 141 mmol/L (135-145); Total Bilirubin 0.9 mg/dl (0.2-1.3); eGFR > 60.00
[2025-02-27 13:41] LABS: % Basophils 0.6 % (0-2); % Eosinophils 2.5 % (0-6); % Lymphocytes 26.2 % (20.5-51.1); % Monocytes 11.8 % (1.7-9.3); % Neutrophils 58.9 % (42.2-75.2); Absolute Eosinophils 0.1 10^3/uL (0-0.7); Absolute Lymphocytes 1.2 10^3/uL (1.2-3.4); Absolute Monocytes 0.6 10^3/uL (0.1-0.6); Absolute Neutrophils 2.8 10^3/uL (1.4-6.5); Mean Corp Hgb Conc. 33.3 g/dL (33.0-37.0); Mean Corpuscular Hgb 31.6 pg (27.0-31.0); Mean Corpuscular Volume 94.7 fL (81.0-99.0); Mean Platelet Volume 10.9 fL (7.4-10.4); Platelet Count 119 10^3/uL (130-400); Red Blood Cell Count 4.12 10^6/uL (4.20-5.40); Red Cell Dist. Width 14.4 % (11.5-14.5); White Blood Cell Count 4.7 10^3/uL (4.8-10.8)
[2025-02-27 15:05] LABS: ALT (SGPT) 27 U/L (0-35); AST (SGOT) 41 U/L (14-36); Albumin 4.3 g/dl (3.5-5.0); Alkaline Phosphatase 129 U/L (38-126); Blood Urea Nitrogen 13 mg/dl (7-17); Calcium 9.5 mg/dl (8.4-10.2); Carbon Dioxide 28 mmol/L (22-30); Chloride 111 mmol/L (98-107); Glucose 97 mg/dl (70-99); Sodium 142 mmol/L (135-145); Total Bilirubin 1.1 mg/dl (0.2-1.3); Total Protein 7.7 g/dl (6.3-8.2); eGFR > 60.00
== END ==
LOC: OIDL 14:34
PROVIDERS: ATTENDING PHYSICIAN Physician Assistant; OTHER PHYSICIAN Internal Medicine Hematology & Oncology
DX: C50.912 Malignant neoplasm of unspecified site of left female breast (principal); C77.0 Secondary and unspecified malignant neoplasm of lymph nodes of head, face and neck; C78.00 Secondary malignant neoplasm of unspecified lung
CPT/HCPCS: 80053; 85025; 85610; 85730

== ENCOUNTER → 2025-02-04 10:57 | Outpatient (REF) | payer MEDICARE, OTHER, SELFPAY | LOC: RAD 10:57 | PROVIDERS: ATTENDING PHYSICIAN Internal Medicine Hematology & Oncology; FAMILY PHYSICIAN Family Medicine | DX: C50.912 Malignant neoplasm of unspecified site of left female breast (principal); C77.0 Secondary and unspecified malignant neoplasm of lymph nodes of head, face and neck; C78.00 Secondary malignant neoplasm of unspecified lung | CPT/HCPCS: 70491; 71260; 74177; Q9967 ==

== ENCOUNTER → 2025-04-24 16:31 | Outpatient (REF) | payer MEDICARE, OTHER, SELFPAY | LOC: RCS 16:31 | PROVIDERS: ATTENDING PHYSICIAN Internal Medicine Hematology & Oncology | DX: C50.912 Malignant neoplasm of unspecified site of left female breast (principal); C77.0 Secondary and unspecified malignant neoplasm of lymph nodes of head, face and neck; C78.00 Secondary malignant neoplasm of unspecified lung; D50.9 Iron deficiency anemia, unspecified; D51.9 Vitamin B12 deficiency anemia, unspecified; K76.6 Portal hypertension | CPT/HCPCS: 93306 ==

== ENCOUNTER → 2025-04-25 10:24 | Outpatient (REF) | payer MEDICARE, OTHER, SELFPAY ==
[2025-04-25 10:33] LABS: Hematocrit 37.9 % (37.0-47.0); Hemoglobin 12.8 g/dL (12.0-16.0); Mean Corp Hgb Conc. 33.8 g/dL (33.0-37.0); Mean Corpuscular Volume 93.1 fL (81.0-99.0); Platelet Count 112 10^3/uL (130-400); Red Cell Dist. Width 13.6 % (11.5-14.5)
[2025-04-25 11:04] LABS: ALT (SGPT) 24 U/L (0-35); AST (SGOT) 40 U/L (14-36); Albumin 4.2 g/dl (3.5-5.0); Alkaline Phosphatase 106 U/L (38-126); Blood Urea Nitrogen 15 mg/dl (7-17); Calcium 8.9 mg/dl (8.4-10.2); Carbon Dioxide 25 mmol/L (22-30); Chloride 107 mmol/L (98-107); Glucose 113 mg/dl (70-99); Potassium 4.1 mmol/L (3.5-5.1); Sodium 138 mmol/L (135-145); Total Protein 7.5 g/dl (6.3-8.2); eGFR > 60.00
== END ==
LOC: OIDL 10:24
PROVIDERS: ATTENDING PHYSICIAN Nurse Practitioner Adult Health
DX: C50.912 Malignant neoplasm of unspecified site of left female breast (principal); C77.0 Secondary and unspecified malignant neoplasm of lymph nodes of head, face and neck; C78.00 Secondary malignant neoplasm of unspecified lung; D50.9 Iron deficiency anemia, unspecified; D51.9 Vitamin B12 deficiency anemia, unspecified; K76.6 Portal hypertension
CPT/HCPCS: 80053; 85025

== ENCOUNTER → 2025-05-16 16:12 | Outpatient (REF) | payer MEDICARE, OTHER, SELFPAY ==
[2025-05-16 10:48] LABS: Hematocrit 35.9 % (37.0-47.0); Hemoglobin 12.0 g/dL (12.0-16.0); Mean Corp Hgb Conc. 33.4 g/dL (33.0-37.0); Mean Corpuscular Volume 93.0 fL (81.0-99.0); Platelet Count 130 10^3/uL (130-400); Red Cell Dist. Width 14.9 % (11.5-14.5)
[2025-05-16 12:05] LABS: ALT (SGPT) 25 U/L (0-35); AST (SGOT) 35 U/L (14-36); Albumin 4.1 g/dl (3.5-5.0); Alkaline Phosphatase 108 U/L (38-126); Blood Urea Nitrogen 12 mg/dl (7-17); Calcium 9.1 mg/dl (8.4-10.2); Carbon Dioxide 24 mmol/L (22-30); Chloride 110 mmol/L (98-107); Glucose 98 mg/dl (70-99); Potassium 3.9 mmol/L (3.5-5.1); Sodium 139 mmol/L (135-145); Total Protein 7.3 g/dl (6.3-8.2); eGFR > 60.00
== END ==
LOC: OIDL 16:12
PROVIDERS: ATTENDING PHYSICIAN Internal Medicine Hematology & Oncology
DX: C50.912 Malignant neoplasm of unspecified site of left female breast (principal); C77.0 Secondary and unspecified malignant neoplasm of lymph nodes of head, face and neck; C78.00 Secondary malignant neoplasm of unspecified lung; D50.9 Iron deficiency anemia, unspecified; D51.9 Vitamin B12 deficiency anemia, unspecified; K76.6 Portal hypertension
CPT/HCPCS: 80053; 85025

== ENCOUNTER → 2025-06-13 14:31 | Outpatient (REF) | payer MEDICARE, OTHER, SELFPAY ==
[2025-06-13 08:55] LABS: Hematocrit 36.3 % (37.0-47.0); Hemoglobin 12.0 g/dL (12.0-16.0); Mean Corp Hgb Conc. 33.1 g/dL (33.0-37.0); Mean Corpuscular Volume 95.3 fL (81.0-99.0); Platelet Count 124 10^3/uL (130-400); Red Cell Dist. Width 15.9 % (11.5-14.5)
[2025-06-13 09:34] LABS: ALT (SGPT) 30 U/L (0-35); AST (SGOT) 40 U/L (14-36); Albumin 4.0 g/dl (3.5-5.0); Alkaline Phosphatase 101 U/L (38-126); Blood Urea Nitrogen 14 mg/dl (7-17); Calcium 9.3 mg/dl (8.4-10.2); Carbon Dioxide 25 mmol/L (22-30); Chloride 111 mmol/L (98-107); Glucose 99 mg/dl (70-99); Potassium 4.2 mmol/L (3.5-5.1); Sodium 141 mmol/L (135-145); Total Protein 7.3 g/dl (6.3-8.2); eGFR > 60.00
== END ==
LOC: OIDL 14:31
PROVIDERS: ATTENDING PHYSICIAN Internal Medicine Hematology & Oncology
DX: C50.912 Malignant neoplasm of unspecified site of left female breast (principal); C77.0 Secondary and unspecified malignant neoplasm of lymph nodes of head, face and neck; C78.00 Secondary malignant neoplasm of unspecified lung; D50.9 Iron deficiency anemia, unspecified; D51.9 Vitamin B12 deficiency anemia, unspecified; K76.6 Portal hypertension; R00.2 Palpitations
CPT/HCPCS: 80053; 85025

== ENCOUNTER → 2025-07-11 09:09 | Outpatient (REF) | payer MEDICARE, OTHER, SELFPAY ==
[2025-07-11 09:14] LABS: Hematocrit 36.5 % (37.0-47.0); Hemoglobin 11.9 g/dL (12.0-16.0); Mean Corp Hgb Conc. 32.6 g/dL (33.0-37.0); Mean Corpuscular Volume 98.1 fL (81.0-99.0); Platelet Count 110 10^3/uL (130-400); Red Cell Dist. Width 15.8 % (11.5-14.5)
[2025-07-11 11:26] LABS: ALT (SGPT) 27 U/L (0-35); AST (SGOT) 41 U/L (14-36); Albumin 4.0 g/dl (3.5-5.0); Alkaline Phosphatase 119 U/L (38-126); Blood Urea Nitrogen 12 mg/dl (7-17); Calcium 9.1 mg/dl (8.4-10.2); Carbon Dioxide 26 mmol/L (22-30); Chloride 109 mmol/L (98-107); Glucose 97 mg/dl (70-99); Potassium 4.1 mmol/L (3.5-5.1); Sodium 140 mmol/L (135-145); Total Protein 7.3 g/dl (6.3-8.2); eGFR > 60.00
== END ==
LOC: OIDL 09:09
PROVIDERS: ATTENDING PHYSICIAN Internal Medicine Hematology & Oncology
DX: C50.912 Malignant neoplasm of unspecified site of left female breast (principal); C77.0 Secondary and unspecified malignant neoplasm of lymph nodes of head, face and neck; C78.00 Secondary malignant neoplasm of unspecified lung; D50.9 Iron deficiency anemia, unspecified; D51.9 Vitamin B12 deficiency anemia, unspecified; K76.6 Portal hypertension; R00.2 Palpitations
CPT/HCPCS: 80053; 85025

== ENCOUNTER → 2025-07-25 06:54 | Outpatient (REF) | payer MEDICARE, OTHER, SELFPAY | LOC: RAD 06:54 | PROVIDERS: ATTENDING PHYSICIAN Internal Medicine Hematology & Oncology | DX: C78.00 Secondary malignant neoplasm of unspecified lung (principal); C50.912 Malignant neoplasm of unspecified site of left female breast; C77.0 Secondary and unspecified malignant neoplasm of lymph nodes of head, face and neck; D59.0 Drug-induced autoimmune hemolytic anemia; D51.9 Vitamin B12 deficiency anemia, unspecified; K76.6 Portal hypertension; D50.9 Iron deficiency anemia, unspecified | CPT/HCPCS: 70491; 71260; 74177; Q9967 ==

== ENCOUNTER → 2025-08-02 13:41 | Outpatient (REF) | payer MEDICARE, OTHER, SELFPAY | LOC: RAD 13:41 | PROVIDERS: ATTENDING PHYSICIAN Internal Medicine Hematology & Oncology | DX: C50.912 Malignant neoplasm of unspecified site of left female breast (principal); C77.0 Secondary and unspecified malignant neoplasm of lymph nodes of head, face and neck; C78.00 Secondary malignant neoplasm of unspecified lung; D50.9 Iron deficiency anemia, unspecified; D51.9 Vitamin B12 deficiency anemia, unspecified; K76.6 Portal hypertension; R00.2 Palpitations | CPT/HCPCS: 72100; 72202; 73502; 73552 ==

== ENCOUNTER 2025-08-14 03:10 | Inpatient (IN) | payer OTHER, SELFPAY ==
[2025-08-13 18:58] VITALS: BP 119/73
[2025-08-13 19:13] LABS: Hematocrit 36.8 % (37.0-47.0); Hemoglobin 12.1 g/dL (12.0-16.0); Mean Corp Hgb Conc. 32.9 g/dL (33.0-37.0); Mean Corpuscular Volume 99.5 fL (81.0-99.0); Nucleated Red Blood Cells % 0 %; Platelet Count 109 10^3/uL (130-400); Red Cell Dist. Width 14.5 % (11.5-14.5)
[2025-08-13 19:35] LABS: ALT (SGPT) 26 U/L (0-35); AST (SGOT) 41 U/L (14-36); Albumin 4.1 g/dl (3.5-5.0); Alkaline Phosphatase 98 U/L (38-126); Blood Urea Nitrogen 25 mg/dl (7-17); Calcium 9.6 mg/dl (8.4-10.2); Carbon Dioxide 26 mmol/L (22-30); Chloride 105 mmol/L (98-107); Glucose 137 mg/dl (70-99); Potassium 3.9 mmol/L (3.5-5.1); Sodium 135 mmol/L (135-145); Total Protein 7.7 g/dl (6.3-8.2); eGFR > 60.00
[2025-08-13 22:32] VITALS: BP 131/62
[2025-08-13 22:33] VITALS: BMI 27.8
[2025-08-13 22:34] VITALS: BP 131/62
[2025-08-13 23:00] VITALS: BP 126/71
[2025-08-14] VITALS (18 sets, daily range): BP systolic 84–162; BP diastolic 42–86; PULSE 72; BMI 26.7
[2025-08-14 00:27] LABS: Urine Character Clear (Clear)
--- NOTE | 2025-08-14 00:27 | ED.GENMED ---
History of Present Illness
<Samra Rico PA-C - Last Filed: 08/14/25 08:30>
General
Chief Complaint: Weakness
Source: patient
Exam Limitations: none
Time Seen by Provider: 08/14/25 00:05
Nursing documentation reviewed up to this point in time: agreed with
History of Present Illness
History of Present Illness:
Note:
CHIEF COMPLAINT(S)
Progressive weakness, primarily in the left leg, with recent falls and difficulty with mobility.
HISTORY OF PRESENT ILLNESS
The patient is a 65-year-old female with pmh of stage 4 breast cancer, follows with Dr. Yanni Cavazos, presents to the ER today with concerns of a with a history of radiation complications and nerve damage due to past cancer treatment. She is
presenting with significant weakness and inability to move her left leg over the past 10 days, which has progressively worsened in the last 3 days. She describes recently being unable to lift her leg off the ground, a new symptom in her clinical
picture. Her leg has been described as 'completely weird' and she cannot bear weight on it without assistance. This immobilization has culminated in multiple falls, including a specific incident where she could not control her downward motion onto a
bench. Though she previously coped with energy deficits post-cancer treatment, the current level of incapacity is unprecedented for her.
Her left hand has limited function post radiation four years ago, and lately, there is a noticeable decline in her right hands usability, affecting her pharmaceutical officer.
There have been no significant changes in urinary or bowel function, though she has reported increased urination frequency at night the past few weeks. She denies numbness or tingling in the genital region. She was advised by her oncologist to visit
the emergency department due to these new symptoms.
The patient was involved in a fall about a month ago, on July 14, which initially seemed to explain her subsequent imbalance; however, her worsening symptoms suggest an escalation beyond post-fall recovery. Notably, she has experienced episodes
of losing balance where she felt compelled to hold onto gallegos or just uncontrollably fell.
The patient has previous experience with excruciating pain management due to her prior conditions, requiring medications including oxycodone, which she took while waiting at the hospital.
She denies any recent vaccinations.
She has no current back pain.
PAST MEDICAL AND SURGICAL HISTORY
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
- Hip replacement on the right side (date unspecified)
EXTERNAL RECORDS REVIEWED
The patient consulted her oncologist 10 days ago and was able to attend the appointment independently at that time. This worsening of symptoms since the last consultation prompted the emergency department visit. Blood work reviewed indicated
dehydration.
CHRONIC MEDICAL CONDITIONS SIGNIFICANTLY AFFECTING CARE
- Cancer with past treatment (radiation and chemotherapy)
- Excruciating pain management related to previous conditions
SOCIAL DETERMINANTS AFFECTING HEALTH
The patient has been experiencing multiple falls, and reports of frequent falls suggest possible home safety risks. She lives with family members who assist her with mobility.
MEDICATIONS
- Oxycodone for pain management
REVIEW OF SYSTEMS
- Neurological: Recent onset weakness in the left leg, unable to lift or independently move the leg. Decreased pharmaceutical officer in the right hand.
- Musculoskeletal: History of right hip replacement; worsened mobility in right leg noted in the last 10 days, now unable to independently ambulate.
- Urinary: Increased frequency of urination at night.
- General: No fevers, fatigue associated with weakness. Reports exhaustion and inability to perform daily tasks without assistance.
- Pain: No current leg pain, reported burning sensation upon moving.
CHART REVIEW
Reviewed discharge summary from 02/14/21 patient seen for hip fracture
PHYSICAL EXAM
General: Alert, no acute distress.
Skin: Warm, dry.
Head: Normocephalic, atraumatic.
Neck: Supple, trachea midline.
Eye, Ears, Nose, and Throat: Oral mucosa moist.
Cardiovascular: Regular rate and rhythm, no murmurs. Normal peripheral perfusion, no edema.
Respiratory: Respirations are non-labored. no wheezes, rales, or rhonchi
Gastrointestinal: Abdomen nondistended. No tenderness to palpation
Back: Normal range of motion, normal alignment.
Musculoskeletal: No bony tenderness to palpation in bilateral upper and lower extremity
Neurological: 4/5 strength in right upper ext (decreased pharmaceutical officer strength), 4/5 strength in left upper extremity. 1/5 strength in LLE almost complete paralysis of left LE able to wiggle toes unable to move leg against gravity. Alert and oriented to
person, place, time, and situation. Normal fluid speech. CN II-XII intact.
Psychiatric: Cooperative, appropriate mood and affect.
PROBLEM LIST
Acute:
- Left leg weakness causing immobility
- Frequent falls
- Progressive loss of right-hand pharmaceutical officer
Chronic:
- Radiation-induced nerve damage
- Chronic pain management
- History of cancer treatment (radiation and chemotherapy)
PLAN
- Administer intravenous fluids to address dehydration.
- Conduct urinary analysis to check for infection.
- Perform CT scan of the brain to rule in any neurological causes of her weakness.
- Consult neurology for further evaluation, given the severity and progression of symptoms. Consider admitting to hospital for a detailed assessment and further management.
DIFFERENTIAL DIAGNOSIS
The Differential Diagnosis includes, in no particular order and is not limited to:
- Central nervous system lesion (e.g., tumor, stroke)
- Spinal cord compression
- Acute exacerbation of radiation-induced neuropathy
- Metastatic disease to the brain or spine
- Autoimmune neuromuscular disorders (e.g., Guillain[place] syndrome)
- Electrolyte imbalance causing neuromuscular symptoms
- Infection that may precipitate systemic weakness or neuropathy
- Medication side effects contributing to muscle weakness
- Vascular disorders affecting the central or peripheral nervous system
- Myasthenia Gravis
Disposition:
SUMMARY OF ENCOUNTER
The patient, a 65-year-old female, presented to the emergency department with concerns of left lower extremity weakness, which has progressively worsened to the point where she can barely walk. A physical exam revealed no resistance against gravity
in the left lower extremity. A CT scan was conducted, showing no evidence of metastatic disease. The case was discussed with Dr. Barrios, a physician gas pumping station operator for neurology.
DISPOSITION
Admit.
ASSESSMENT
The patient presents with significant left lower extremity weakness, requiring further evaluation and treatment.
MANAGEMENT OF THE PATIENTS CARE WAS DISCUSSED WITH
Dr. Barrios, a physician gas pumping station operator for radiology, and the ED attending physician. The patient was referred for admission for further evaluation.
PLAN
The patient will require admission for further evaluation and treatment, including an MRI of the brain and a physical therapy consult.
INDEPENDENT REVIEW OF LABS AND INTERPRETATION OF TESTS
- My independent interpretation of the CT scan shows no evidence of metastatic disease.
MEDICAL DECISION MAKING
- Number and Complexity of Problems Addressed: Chronic conditions affecting care include cancer with past radiation and chemotherapy treatment, radiation-induced nerve damage, and chronic pain management. Differential diagnosis considerations
include central nervous system lesions, spinal cord compression, acute exacerbation of radiation-induced neuropathy, metastatic disease, autoimmune disorders, electrolyte imbalance, infection, medication side effects, vascular disorders, and
Myasthenia Gravis.
- Data:
- Category 1: CT scan reviewed independently, showing no evidence of metastatic disease.
- Category 3: Discussion of management with Dr. Barrios neurology and the ED attending physician regarding admission and further evaluation.
DIAGNOSIS
- Left lower extremity weakness, unspecified (ICD-10: M62.81).
- Gait disturbance
Past History
<Samra Rico PA-C - Last Filed: 08/14/25 08:30>
Past History
ED Past Medical History: Cancer
ED Past Surgical History: Other
Social History
Tobacco: Non-smoker
Living: with family
Phy Exam
<Samra Rico PA-C - Last Filed: 08/14/25 08:30>
Physical Exam
Physical Exam:
see hpi
NIH Stroke Score
Level of Consciousness: 0 - Alert
LOC questions: 0-Answers both correctly
LOC Commands: 0-Performs both correctly
Best Gaze: 0-Normal
Visual Ibarra: 0=Normal, no visual loss
Facial palsy: 0=Normal, symmetrical
Motor - Right Arm: 0=No drift 10 seconds
Motor - Left Arm: 1=Drift < 10 seconds
Motor - Right Le-No drift 5 seconds
Motor - Left Le-None vs. gravity
Limb Ataxia: 0-Absent
Sensation: 0-Normal
Best Language: 0-No aphasia
Dysarthria: 0-Normal
Extinction and Inattention: 0-No abnormality
Total Score:: 4
<Rigo Nieves DO - Last Filed: 08/14/25 04:09>
NIH Stroke Score
Total Score:: 4
Scores
<Samra Rico PA-C - Last Filed: 08/14/25 08:30>
NIH Stroke Score
Level of Consciousness: 0 - Alert
LOC Questions: 0-Answers both correctly
LOC Commands: 0-Performs both correctly
Best Horizontal Gaze: 0-Normal
Visual Ibarra: 0=Normal, no visual loss
Facial Palsy: 0=Normal, symmetrical
Motor - Right Arm: 0=No drift 10 seconds
Motor - Left Arm: 1=Drift < 10 seconds
Motor - Right Le-No drift 5 seconds
Motor - Left Le-None vs. gravity
Limb Ataxia: 0-Absent
Sensation: 0-Normal
Best Language: 0-No aphasia
Dysarthria: 0-Normal
Extinction and Inattention: 0-No abnormality
NIH Total Score:: 4
Course
<Samra Rico PA-C - Last Filed: 08/14/25 08:30>
Orders/Labs/Results
Orders:
Orders
08/13/25 19:04
Complete Blood Count/With Diff Urgent
Comprehensive Metabolic Panel Urgent
Glycohemoglobin (HgbA1c) Urgent
08/14/25 00:17
Urinalysis Reflex To Culture Urgent
Date Specimen was Collected: 08/14/25
Time Specimen was Collected: 00:16
Urine Microscopic Reflex Cult Urgent
Urine Culture Urgent
OTTO Source: U
Specimen Description:
Date Specimen was Collected: 08/14/25
Time Specimen was Collected: 00:16
08/14/25 00:25
CT Head W/o Iv Contrast Urgent
Comment:
Reason For Exam: LEFT SIDED WEAKNESS
0.9% Sodium Chloride 1000 ml [Nss] 1,000 ml IV BOLUS
08/14/25 03:00
Admit/Transfer Patient As Directed
Co-Sign Provider:
Level of Care: Inpatient admission
Assign to:: Telemetry
Physician / Group: Carmelo
Diagnosis: LLE Weakness, Breast Cancer
Reason for Telemetry: CVA/TIA
Date to Stop Telemetry: 08/17/25
Time to Stop Telemetry: 11:00
Reason for Hospitalization: LLE Weakness, Breast Cancer
Expected length of stay greater than two midnights?: Yes
ELOS- Estimated Length of Stay in days: 3
I certify the patient meets the requirements for IP care: Yes
PRN Pain Medication Management As Directed
May give lesser potent ordered pain med per pt: Yes
preference::
Protocol:: Medication orders for pain may be administered in a
manner that supports deferring to patient preference
when the pt is:
- Requesting an ordered lesser potent pain medication.
Least to most potent pain medications are defined
as: acetaminophen < NSAID < tramadol < opioids
(morphine, oxycodone, hydromorphone).
- Requesting a lesser dose of the same medication IF
ORDERED.
- Requesting a less intrusive route of administration
if both routes are prescribed by the provider (PO <
IV).
08/14/25 03:01
Code Status As Directed
Resuscitation Status: Full Code
08/14/25 03:03
COVID-19 Antigen Urgent
Source: Nasal Swab
Influenza A+B Rapid Molecular Urgent
OTTO Source: Nasal Swab
Specimen Description:
08/14/25 Breakfast
Regular
At Your Request: Limited Participation
08/14/25 06:32
Acetaminophen [Tylenol] 650 mg PO Q4HPRN PRN
Oxycodone [Roxicodone] 10 mg PO Q4HPRN PRN
08/14/25 06:32
NEUROLOGY CONSULT Routine
Consulting Provider: Dominick Barrios
Was physician already notified: Yes
Activity As Directed
Activity Level: Ambulate
With Assistance
EKG with chest pain [ECG as needed] As Directed
ECG as needed for:: Chest Pain
I/O [Intake/ Output] As Directed
Frequency: Per unit guidelines
Neurological Checks As Directed
Frequency: q4h
Pneumatic Compression Sleeves As Directed
Type: Knee high
Vital Signs As Directed
Frequency: Per unit guidelines
Oxygen Therapy [O2 Therapy] [RESP] Routine
Titrate/Wean O2 to maintain O2 sat greater than (%): 94
Ot Eval And Treat Routine
PT Consult [Pt Eval And Treat] Routine
Activity Level: Ambulate
With Assistance
DX Deep Vein Thrombosis Video Routine
08/14/25 08:00
Aspirin Chewable [Low Strength Aspirin] 81 mg PO DAILY
Pregabalin [Lyrica] 150 mg PO TID
08/15/25 06:00
Basic Metabolic Panel IN AM
Cardiovascular Evaluation IN AM
Complete Blood Count/No Diff IN AM
MR Brain W/o & With Contrast IN AM
Comment:
Reason For Exam: LLE Weakness, Breast Cancer
Recent pill cam endoscopy?: No
08/17/25 11:00
DC Protocol for Telemetry ONCE
Abnormal Lab Results
08/13/25 08/14/25
19:04 00:17
RBC 3.70 L 10^6/uL
(4.20-5.40)
Hct 36.8 L %
(37.0-47.0)
MCV 99.5 H fL
(81.0-99.0)
MCH 32.7 H pg
(27.0-31.0)
MCHC 32.9 L g/dL
(33.0-37.0)
Plt Count 109 L 10^3/uL
(130-400)
MPV 11.2 H fL
(7.4-10.4)
BUN 25 H mg/dl
(7-17)
Glucose 137 H mg/dl
(70-99)
AST 41 H U/L
(14-36)
Ur Occult Blood Reflex 1+ A
(Negative)
Urine Nitrite (Reflex) Positive A
(Negative)
Leukocyte Esterase Rfl 2+ A
(Negative)
Urine WBC (Reflex) 21-25 A /HPF
(0-5)
Urine Bacteria (Reflex) Many A
(Negative)
Urine Albumin (Reflex) 2+ A
(Neg - Trace)
08/13/25 19:04
08/13/25 19:04
Vital Signs
Initial and Last Documented VS:
Initial Vital Signs
Temp Pulse Resp BP Pulse Ox
98.2 F 83 16 119/73 98
08/13/25 18:58 08/13/25 18:58 08/13/25 18:58 08/13/25 18:58 08/13/25 18:58
Last Documented Vital Signs
Temp Pulse Resp BP Pulse Ox
97.8 F 77 16 162/75 95
08/14/25 06:36 08/14/25 06:36 08/14/25 06:36 08/14/25 06:36 08/14/25 06:36
<Rigo Nieves, DO - Last Filed: 08/14/25 04:09>
Orders/Labs/Results
Orders:
Orders
08/13/25 19:04
Complete Blood Count/With Diff Urgent
Comprehensive Metabolic Panel Urgent
Glycohemoglobin (HgbA1c) Urgent
08/14/25 00:17
Urinalysis Reflex To Culture Urgent
Date Specimen was Collected: 08/14/25
Time Specimen was Collected: 00:16
Urine Microscopic Reflex Cult Urgent
Urine Culture Urgent
OTTO Source: U
Specimen Description:
Date Specimen was Collected: 08/14/25
Time Specimen was Collected: 00:16
08/14/25 00:25
CT Head W/o Iv Contrast Urgent
Comment:
Reason For Exam: LEFT SIDED WEAKNESS
0.9% Sodium Chloride 1000 ml [Nss] 1,000 ml IV BOLUS
08/14/25 03:00
Admit/Transfer Patient As Directed
Co-Sign Provider:
Level of Care: Inpatient admission
Assign to:: Telemetry
Physician / Group: Carmelo
Diagnosis: LLE Weakness, Breast Cancer
Reason for Telemetry: CVA/TIA
Date to Stop Telemetry: 08/17/25
Time to Stop Telemetry: 11:00
Reason for Hospitalization: LLE Weakness, Breast Cancer
Expected length of stay greater than two midnights?: Yes
ELOS- Estimated Length of Stay in days: 3
I certify the patient meets the requirements for IP care: Yes
PRN Pain Medication Management As Directed
May give lesser potent ordered pain med per pt: Yes
preference::
Protocol:: Medication orders for pain may be administered in a
manner that supports deferring to patient preference
when the pt is:
- Requesting an ordered lesser potent pain medication.
Least to most potent pain medications are defined
as: acetaminophen < NSAID < tramadol < opioids
(morphine, oxycodone, hydromorphone).
- Requesting a lesser dose of the same medication IF
ORDERED.
- Requesting a less intrusive route of administration
if both routes are prescribed by the provider (PO <
IV).
08/14/25 03:01
Code Status As Directed
Resuscitation Status: Full Code
08/14/25 03:03
COVID-19 Antigen Urgent
Source: Nasal Swab
Influenza A+B Rapid Molecular Urgent
OTTO Source: Nasal Swab
Specimen Description:
08/14/25 Breakfast
Regular
At Your Request: Limited Participation
08/14/25 06:32
Acetaminophen [Tylenol] 650 mg PO Q4HPRN PRN
Oxycodone [Roxicodone] 10 mg PO Q4HPRN PRN
08/14/25 06:32
NEUROLOGY CONSULT Routine
Consulting Provider: Dominick Barrios
Was physician already notified: Yes
Activity As Directed
Activity Level: Ambulate
With Assistance
EKG with chest pain [ECG as needed] As Directed
ECG as needed for:: Chest Pain
I/O [Intake/ Output] As Directed
Frequency: Per unit guidelines
Neurological Checks As Directed
Frequency: q4h
Pneumatic Compression Sleeves As Directed
Type: Knee high
Vital Signs As Directed
Frequency: Per unit guidelines
Oxygen Therapy [O2 Therapy] [RESP] Routine
Titrate/Wean O2 to maintain O2 sat greater than (%): 94
Ot Eval And Treat Routine
PT Consult [Pt Eval And Treat] Routine
Activity Level: Ambulate
With Assistance
DX Deep Vein Thrombosis Video Routine
08/14/25 08:00
Aspirin Chewable [Low Strength Aspirin] 81 mg PO DAILY
Pregabalin [Lyrica] 150 mg PO TID
08/15/25 06:00
Basic Metabolic Panel IN AM
Cardiovascular Evaluation IN AM
Complete Blood Count/No Diff IN AM
MR Brain W/o & With Contrast IN AM
Comment:
Reason For Exam: LLE Weakness, Breast Cancer
Recent pill cam endoscopy?: No
08/17/25 11:00
DC Protocol for Telemetry ONCE
Abnormal Lab Results
08/13/25 08/14/25
19:04 00:17
RBC 3.70 L 10^6/uL
(4.20-5.40)
Hct 36.8 L %
(37.0-47.0)
MCV 99.5 H fL
(81.0-99.0)
MCH 32.7 H pg
(27.0-31.0)
MCHC 32.9 L g/dL
(33.0-37.0)
Plt Count 109 L 10^3/uL
(130-400)
MPV 11.2 H fL
(7.4-10.4)
BUN 25 H mg/dl
(7-17)
Glucose 137 H mg/dl
(70-99)
AST 41 H U/L
(14-36)
Ur Occult Blood Reflex 1+ A
(Negative)
Urine Nitrite (Reflex) Positive A
(Negative)
Leukocyte Esterase Rfl 2+ A
(Negative)
Urine WBC (Reflex) 21-25 A /HPF
(0-5)
Urine Bacteria (Reflex) Many A
(Negative)
Urine Albumin (Reflex) 2+ A
(Neg - Trace)
08/13/25 19:04
08/13/25 19:04
Vital Signs
Initial and Last Documented VS:
Initial Vital Signs
Temp Pulse Resp BP Pulse Ox
98.2 F 83 16 119/73 98
08/13/25 18:58 08/13/25 18:58 08/13/25 18:58 08/13/25 18:58 08/13/25 18:58
Last Documented Vital Signs
Temp Pulse Resp BP Pulse Ox
97.8 F 77 16 162/75 95
08/14/25 06:36 08/14/25 06:36 08/14/25 06:36 08/14/25 06:36 08/14/25 06:36
<Samra Rico PA-C - Last Filed: 08/14/25 08:30>
*Pulse Oximetry
SaO2: 97
Oxygen Mode of Delivery: Room air
Patient hypoxic: no
*Critical Care Note
Total Time (30-74mins, 75-104mins- exclusive of procedures): Not Applicable
ED Attending Note
<Samra Rico PA-C - Last Filed: 08/14/25 08:30>
-
Portions of this chart may have been created with voice recognition software.� Occasional wrong word or��sound alike� substitutions may have occurred due to the inherent limitations of voice recognition software.
<Rigo Nieves DO - Last Filed: 08/14/25 04:09>
ED Attending Note
Patient seen and examined by attending physician: Yes
ED Attending Note:
I reviewed and agree with history treatment plan. My exam revealed 65-year-old female no acute distress, decreased strength left lower extremity with intact sensation, weakness and numbness in left upper extremity. Admit to hospitalist for further
evaluation of left lower extremity weakness. Concern for stroke versus nerve impingement.
Discharge Plan
Departure
Patient Disposition: Admit
Date of Disposition: 08/14/25
Time of Disposition: 02:59
Admit to: Med/Surg
Presentation/result/management discussed w/ accepting MD/DO: Hospitalist
Patient with high blood pressure during this ER visit?: Yes
Condition: Fair
Discharge Problem:
Left leg weakness, Balance problems, Recurrent falls
Interventions
Interventions:
*Risk Screen - Suicide Last Done: 08/13/25 18:59
*General Assessment Last Done: 08/13/25 22:41
*Neglect/Abuse Screening Last Done: 08/13/25 18:59
*ED- Fall Risk Assessment Last Done: 08/13/25 22:41
*ED COVID-19 Vaccine History Last Done: 08/13/25 22:41
*ED Influenza Vaccine History Last Done: 08/13/25 22:41
*Nursing Disposition Last Done: 08/14/25 06:32
ED- Cardiac Assessment Last Done: 08/13/25 22:41
ED- Neurological Assessment Last Done: 08/13/25 22:41
ED- Pulmonary Assessment Last Done: 08/13/25 22:41
Discharge Date and Time
Discharge Date/Time: 08/14/25 06:36
[2025-08-14 00:32] LABS: Urine Red Blood Cell 0-2 /HPF (0-2); Urine White Cell 21-25 /HPF (0-5)
--- NOTE | 2025-08-14 03:03 | HPS.HSE ---
Family Physician
-
Family Physician: NOT KNOW UNKNOWN - PT DOES
Chief Complaint
-
LLE Weakness, Falls
History of Present Illness
Patient is a 65y F with PMH significant for breast cancer on chemotherapy who presents to ED complaining of LLE weakness and frequent falls. Patient states that she slid out of bed about 3 weeks ago and struck her head hard on a night stand.
She believes she may have lost consciousness for a short time. Patient states that she has noted gradually progressive LLE weakness / heaviness since that time. She has had occasional headaches posteriorly. She has had additional falls due to
this weakness - including 2 falls at home today. No recurrent head injury or LOC.
This evening, patient notes that she was completely incapable of moving / lifting her LLE. She denies any pain, paresthesias or numbness in the LLE.
No injury to the LLE that she can recall.
She has chronic pain, weakness and numbness in the LUE and denies any new changes in this regard.
Patient is currently on chemotherapy for breast cancer - though she missed last week's session due to not feeling well.
Medical History
Past Medical History
Past Medical History: Reports Other
Additional Past Medical History:
Stage IV Breast Cancer on Chemotherapy and s/p Surgery and XRT
Neuropathy of the LUE
Past Surgical History: Reports Other
Additional Past Surgical History:
Left Lumpectomy
Social History
Tobacco: Non-smoker
Alcohol: None
Drug: None
Family History
Family History: Not pertinent
Allergies / Home Medications
Allergies reflects when Allergies were last updated in [facility].
Home Medications with original date entered in [facility]
Allergy/Medication List:
Allergies
Allergy/AdvReac Type Severity Reaction Status Date / Time
No Known Allergies Allergy Unverified 11/03/20 15:35
Home Medications
alprazolam 0.25 mg tablet 0.25 mg PO HSPRN PRN sleep 01/29/21
ondansetron 8 mg disintegrating tablet (Zofran ODT) 8 mg PO Q8HPRN PRN nausea 01/29/21
oxycodone 10 mg tablet 20 mg PO Q6HPRN PRN moderate pain 01/29/21
pregabalin 150 mg capsule (Lyrica) 150 mg PO TID Neurological Condition 01/29/21
aspirin 325 mg tablet 325 mg PO DAILY #30 tabs 01/31/21
Review of Systems
-
History Source: Patient
A 12 point ROS was completed and negative except as noted: Yes
Constitutional: Reports Fatigue; Denies Fever or Chills
EENT: Denies Sore Throat
Respiratory: Denies Cough or Trouble Breathing
Cardiac: Denies Chest Pain or Palpitations
Abdomen/GI: Denies Abdominal Pain, Nausea, Vomiting or Diarrhea
: Denies Dysuria, Frequency, Flank Pain or Incontinence
Musculoskeletal: Denies Joint Pain or Edema
Neurological: Reports Headache and Weakness; Denies Dizzy
Psych: Denies Depression or Anxiety
Physical Exam
Vital Signs
Vital Signs
Temp Pulse Resp BP Pulse Ox
97.6 F 72 13 131/62 97
08/13/25 22:34 08/13/25 22:34 08/13/25 22:34 08/13/25 22:34 08/14/25 00:27
Physical Exam
General: Other (65y F in no acute distress.)
HEENT: Moist mucous membranes and PERRLA
Respiratory: Clear; No Wheezes, Rales or Rhonchi
Cardiac: S1/S2 and Regular Rhythm; No Murmur
GI: Soft, Non Tender, Non Distended and Normal Bowel Sounds
Musculoskeletal: No Clubbing, No Cyanosis and No Edema
Neuro: AO x 3 and Other (Markedly decreased strength in the LLE with some distal movement intact. Sensation is intact. LUE with chronic weakness / numbness - unchanged per patient.)
Laboratory Results
-
08/13/25 19:04
08/13/25 19:04
Laboratory Results
Total Bilirubin 0.8 mg/dl (0.2-1.3) 08/13/25 19:04
AST 41 U/L (14-36) H 08/13/25 19:04
ALT 26 U/L (0-35) 08/13/25 19:04
Alkaline Phosphatase 98 U/L (38-126) 08/13/25 19:04
Impression/Plan
-
A/P: Patient is a 65y F with PMH significant for stage IV breast cancer on chemotherapy who presents to ED complaining of LLE weakness that has been steadily progressive x 3 weeks and is now severe.
LLE Weakness
Ambulatory Dysfunction / Frequent Falls secondary to the above
- Admit for further evaluation and treatment.
- CT head in the ED this evening was unremarkable.
- Marked weakness in the LLE on exam with no complaints of pain, no focal tenderness and no evident injury / trauma.
- CT scan done 07/25/25 of the C/A/P (and including skull base) showed no evidence of any active malignancy.
- Follow neurologic exam for any changes.
- Neurology evaluation for additional recommendations.
- MRI brain with and without contrast in the AM.
Stage IV Breast Cancer
- s/p original lumpectomy, chemo and XRT.
- Now on chemo and followed by Dr. Cavazos.
- Missed last week's session.
- Recent follow-up CT showed no disease as noted above.
LUE Neuropathy
- Chronic changes attributed to prior L breast XRT.
- No new weakness, numbness, pain per patient.
- Continue Lyrica / Oxycodone for chronic pain control.
DVT Prophylaxis: SCDs
Code Status: Full
--- NOTE | 2025-08-14 03:08 | DOWNTIME ---
There was a [facility] [employer]les[employer] Downtime on 08/14/2025 from 0100 to 08/14/2025 at 0255. Downtime documentation of patient's care, including medication administrations, has been reconciled in the electronic record per guidelines. Refer to the
patient's paper chart under the miscellaneous tab to see printed paper medication records and downtime forms.
[2025-08-14] MEDS: NSS 1000 IV ×3 (03:30→19:06)
[2025-08-14 03:38] LABS: COVID-19 Antigen Negative (Negative)
--- NOTE | 2025-08-14 06:45 | PTCARENOTE ---
Pt received from ED via stretcher at 0625. Pt pleasant, AAOx3, VSS, and pulled over into bed from stretcher. Pt receptive to room and call banda. Pt bed in lowest position and alyssa banda within reach. Pt Croatian speaking and relays minimal
understanding of call banda usage, bed alarm placed and plugged in. Will continue with current plan of care.
[2025-08-14] MEDS: LOW STRENGTH ASPIRIN 81 MG PO (08:13)
[2025-08-14] MEDS: LYRICA 150 MG PO ×3 (08:13→21:44)
[2025-08-14] MEDS: TYLENOL 650 MG PO (08:19)
--- NOTE | 2025-08-14 09:18 | CON.NEURO4 ---
Addendum entered and electronically signed by Dominick Barrios MD 08/14/25 12:25:
Studies reviewed.
I have personally examined the patient. I reviewed and agree with the RECOVERY ASSISTANT's Note.
My addenda:
Awake, interactive. No acute distress.
Speech mildly slow, reduced output.
Follows 2-step requests w/ difficulty. No tremor.
Extra-ocular movements grossly intact.
Facial movements full and symmetric. Hearing intact to normal conversational volume.
Normal UE movements bilaterally.
Neck: full ROM.
Chest: no dyspnea
Heart: no JVD
Ext: (-) Clubbing, (-) Cyanosis, (-) Edema
IMPRESSIONS/RECOMMENDATIONS:
Subacute onset of left lower extremity weakness and right hand dysfunction in a patient with previously diagnosed left brachial plexopathy secondary to metastatic stage IV breast cancer
The patient's nightly ptosis and left lower extremity proximal weakness suggest the possibility of either a myasthenia gravis secondary to paraneoplastic syndrome or multiple metastases causing compression at various levels of the spinal cord
without urinary dysfunction
Check MRI of brain with and without contrast as planned
Check antibodies kojo to myasthenia gravis
Consider MRI imaging of the entire spine
Consider EMG study with repetitive stimulation
consider checking paraneoplastic antibodies
Rehabilitation evaluations and treatment
D/W patient / family
All questions answered.
Will continue to follow patient.
Original Note:
Documented by User: Yasmin Reaves NP 08/14/25 11:56
Consultation - Neurology 4
-
CONSULTING PHYSICIAN: Dominick Barrios MD
REFERRING PHYSICIAN: Hospitalists/Dr. Rhodes
DICTATED BY: PATRIC Toth
DATE/TIME OF REQUEST: 08/14/25
DATE/TIME OF CONSULTATION: 08/14/25
Reason for Consultation: LLE weakness
History of Present Illness:
This is a 65-year-old right-handed male who has presented to the hospital on 08/13/25 with report of left lower extremity, right hand manager marketing sales weakness, and gait dysfunction. Patient and her son at bedside report that three weeks ago she slid out of
bed striking her head on her night stand. Since that time, they have noticed that her LLE has been progressively seeming weaker and she is dragging it when she walks. She has fallen several more times since then. She also notes that starting a few
days ago her right hand manager marketing sales strength weakened. She also notes a several month history of diplopia/blurred vision at night only. She stopped watching TV before bed due to this. She denies any speech/swallow difficulty. Her son notes that she has
been urinating more frequently at night despite not drinking much water. Yesterday (08/13/25), she went to physical therapy for left shoulder pain, and they referred her to the ER for evaluation. CT head was obtained on arrival and is negative for
any acute abnormalities.
Past Medical History: Stage IV breast cancer w/ mets to lung and left neck lymph nodes on [place] s/p resection/radiation, LUE neuropathy/brachial plexopathy due to radiation therapy
Surgical History: Left lumpectomy, right hip hemiarthroplasty.
Family History: Reviewed and noncontributory.
Social History: Denies tobacco, alcohol, and illicit drug use.
Allergies: No known allergies.
Home Medications: See below.
Review of Symptoms:
Patient denies any fever, headache, chest pain, shortness of breath, GI or symptoms.
�Per the HPI.�All systems are reviewed negative except above.
Physical Exam:
The patient is afebrile, abdomen is nondistended, breathing is unlabored, skin is warm and dry, no edema.
NIH Stroke Scale:
I performed the NIH stroke scale on the patient on 08/14/25 at 0930. The patient scored 3 points on the NIH stroke scale assessment, which were assigned as follows: See below.
Neurologic Examination:
The patient is awake, alert and oriented x 3. She is able to follow commands and answer questions appropriately. There is no aphasia or dysarthria. On cranial nerve assessment, pupils are 3 mm bilateral, round and reactive to light and
accommodation. Visual ibarra are possibly reduced on the right side. Extraocular movements are intact. There is slight ptosis bilaterally, more prominent on the left. Hearing is intact bilaterally to normal conversation volume. Tongue palate and
uvula are midline. Sternocleidomastoid strengths are full bilaterally. Neck ext/flex 5/5. Motor strengths are 5/5 RUE, 4+/5 LUE, 4/5 RLE, 4-/5 LLE (proximal 2/5) on medical research [place] scale. There is drift in the LUE. No involuntary movement
noted. Deep tendon reflexes are 2+ bilateral upper and bilateral patellar, absent AJs, and Babinski is absent bilaterally. There was no extinction noted on double simultaneous stimulation. Coordination is intact by finger to nose bilaterally.
Lab Results: See below.
Neuro Imaging:
1. CT Head 08/13/25: No acute intracranial process.
Differentials for the patient's presentation include:
1. Progressive weakness and night time diplopia, concerning for cancer-induced myasthenia gravis. Differential diagnosis includes a structural brain abnormality.
Patient has the following risk factors for their symptoms: Cancer
IV Tenecteplase/IAT candidacy: Not a candidate due to outside of time window.
Recommendations:
-MRI brain w/ and w/o contrast pending.
-Acetylcholine and MUSK antibodies pending.
-Initiating pyridostigmine 30mg TID to see if this benefits the patient; watch for diarrhea and sialorrhea.
-NIHSS and Neurological checks per unit guidelines.
-PT/OT/ST evaluations.
-DVT prophylaxis.
Discussed patient care with: Dr. Barrios, the patient, patient's son
Vital Signs and Labs
-
Vital Signs and Labs:
Vital Signs
Temp Pulse Resp BP Pulse Ox
97.5 F 82 16 125/81 97
08/14/25 07:40 08/14/25 07:40 08/14/25 07:40 08/14/25 07:40 08/14/25 07:40
Lab Results
08/13/25 19:04
08/13/25 19:04
Sodium 135 mmol/L (135-145) 08/13/25 19:04
Potassium 3.9 mmol/L (3.5-5.1) 08/13/25 19:04
BUN 25 mg/dl (7-17) H 08/13/25 19:04
Glucose 137 mg/dl (70-99) H 08/13/25 19:04
Calcium 9.6 mg/dl (8.4-10.2) 08/13/25 19:04
Medications
-
Active Medications
Generic Name Dose Route Start Last Admin
Trade Name Freq PRN Reason Stop Dose Admin
Acetaminophen 650 mg 08/14/25 06:32 08/14/25 08:19
Acetaminophen 325 Mg Tablet PO 09/11/25 06:31 650 mg
Q4HPRN PRN Administration
Mild Pain / Temp > 101
Aspirin 81 mg 08/14/25 08:00 08/14/25 08:13
Aspirin 81 Mg Chewable Tablet PO 09/11/25 07:59 81 mg
DAILY TAMANNA Administration
Oxycodone HCl 10 mg 08/14/25 06:32
Oxycodone 10 Mg Regular Release Tablet PO 08/28/25 06:31
Q4HPRN PRN
Severe Pain
Pregabalin 150 mg 08/14/25 08:00 08/14/25 08:13
Pregabalin 75 Mg Capsule PO 09/11/25 07:59 150 mg
TID TAMANNA Administration
Sodium Chloride 0 flush 08/14/25 07:00
Sodium Chloride 0.9% (Flush) Syringe IV 09/11/25 06:59
PER PROTOCOL TAMANNA
Home Medications
�Medication �Instructions �Recorded
alprazolam 0.25 mg tablet 0.25 mg PO HSPRN PRN sleep 01/29/21
ondansetron 8 mg disintegrating 8 mg PO Q8HPRN PRN nausea 01/29/21
tablet (Zofran ODT)
oxycodone 10 mg tablet 20 mg PO Q6HPRN PRN moderate pain 01/29/21
pregabalin 150 mg capsule (Lyrica) 150 mg PO TID Neurological 01/29/21
Condition
aspirin 325 mg tablet 325 mg PO DAILY #30 tabs 01/31/21
NIH Stroke Score
Subsequent NIH Scale
Date of Subsequent NIH Scale: 08/14/25
Time of Subsequent NIH Scale: 09:30
NIH Stroke Score
Level of Consciousness: 0 - Alert
LOC Questions: 0-Answers both correctly
LOC Commands: 0-Performs both correctly
Best Horizontal Gaze: 0-Normal
Visual Ibarra: 1=Partial hemianopia
Facial Palsy: 1=Minor paralysis
Motor - Right Arm: 0=No drift 10 seconds
Motor - Left Arm: 1=Drift < 10 seconds
Motor - Right Le-No drift 5 seconds
Motor - Left Le-No drift 5 seconds
Limb Ataxia: 0-Absent
Sensation: 0-Normal
Best Language: 0-No aphasia
Dysarthria: 0-Normal
Extinction and Inattention: 0-No abnormality
NIH Total Score:: 3

Documented by User: Dominick Barrios MD 08/14/25 12:09
NIH Stroke Score
NIH Stroke Score
NIH Total Score:: 3
[2025-08-14 09:46] LABS: Glycohemoglobin (HgbA1c) 5.0 % (4.0-5.9)
[2025-08-14] MEDS: MESTINON 30 MG PO ×3 (10:08→21:42)
--- NOTE | 2025-08-14 12:03 | W.PN.HOSP.TC ---
Addendum entered and electronically signed by Salinas Barnard MD 08/14/25 21:37:
Empiric antibiotics until cultures back.
Original Note:
Today's Communication/Plan
-
Brain and spine MRI.
Assessment / Plan
Assessment / Plan
Physical exam:
General: Acute on chronically ill
HEENT: Normocephalic, Atraumatic and Moist Mucous Membranes
Respiratory: Clear to Auscultation; Negative Wheezes, Rales or Rhonchi
Cardiac: Regular Rhythm and S1/S2
GI: Soft, Nontender and Nondistended
Musculoskeletal: No Clubbing, No Cyanosis and No Edema
Neuro: Awake, Alert and Oriented, left lower extremity weakness, no cranial nerve deficits.
Psych: Calm
A/P:
Left lower extremity weakness:
Rule out metastatic brain disease versus paraneoplastic syndrome versus spine involvement of metastasis
CT scan of the head no acute intracranial abnormality
MRI of the brain pending with and without contrast
Will also check MRI of the spine including cervical, thoracic, and lumbar spine.
Neurology consult appreciated
Will request oncology evaluation as well-discussed with oncology via [place] text
Started on Mestinon empirically by neurology
On aspirin
PT OT eval
History of left brachial plexopathy due to metastatic breast cancer:
On Lyrica
Metastatic stage IV breast cancer:
Status postlumpectomy chemo and radiation
Oncology consult
Continue oxycodone as needed
Add bowel regimen
Abnormal UA:
Since she is afebrile and hemodynamically stable we will follow-up urine culture and reevaluate
Thrombocytopenia:
Monitor closely
DVT prophylaxis:
Will add heparin SQ and monitor platelet count
CODE STATUS:
Full code
Anticipated Discharge: > 48 hours
Subjective/Interval History
-
Date of Service: August 14, 2025
Patient still having left lower extremity weakness. Afebrile. No chest pain or shortness of breath
Objective Data
-
Vital Signs:
Vital Signs
Temp Pulse Resp BP Pulse Ox
98.1 F 71 16 85/49 100
08/14/25 11:30 08/14/25 11:30 08/14/25 11:30 08/14/25 11:30 08/14/25 11:30
--- NOTE | 2025-08-14 16:00 | CM ---
Patient seen bedside w/ son, initial assessment completed. Patient is a 65y F with PMH significant for breast cancer on chemotherapy who presents to ED complaining of LLE weakness and frequent falls.
Patient resides w/ son and daughter in law in a 2STH, 3 steps to enter. Patient prev independent w/ cane, independent w/ bathing, feeding. Per son, his assists patient w/ putting on socks and shoes. Denies SNF hx, home PT and OP PT hx following
hip replacement in 2020. Per son, patient has been falling lately w/ no serious injuries.
Address, points of contact and insurance verified
PCP: Howard Curry
Pharmacy: [facility] [place]
Therapy evaluated patient. PT indicated rehab, OT indicated acute vs SNF. Discussed w/ son who is agreeable to rehab for patient prior to her returning home
Plan: Rehab
[2025-08-14] MEDS: HEPARIN 5000 UNITS SC ×2 (16:30→23:11)
[2025-08-14] MEDS: SENOKOT PO (16:46)
[2025-08-14] MEDS: MIRALAX PO (16:46)
[2025-08-14] MEDS: STERILE WATER FOR INJECTION 10 ML IV (19:06)
[2025-08-14] MEDS: ROCEPHIN 1000 MG IV (19:06)
[2025-08-14] MEDS: SENOKOT 8.6 MG PO (19:28)
[2025-08-15 03:03] VITALS: BP 155/82
[2025-08-15] MEDS: NSS 1000 IV (05:35)
[2025-08-15 07:00] VITALS: BP 110/59
[2025-08-15 07:56] LABS: Hematocrit 32.7 % (37.0-47.0); Hemoglobin 11.1 g/dL (12.0-16.0); Mean Corp Hgb Conc. 33.9 g/dL (33.0-37.0); Mean Corpuscular Volume 95.1 fL (81.0-99.0); Red Cell Dist. Width 14.4 % (11.5-14.5)
[2025-08-15] MEDS: MIRALAX 17 GRAMS PO (07:59)
[2025-08-15] MEDS: SENOKOT 8.6 MG PO (08:00)
[2025-08-15] MEDS: MESTINON 30 MG PO (08:00)
[2025-08-15] MEDS: LYRICA 150 MG PO ×2 (08:01→15:07)
[2025-08-15] MEDS: HEPARIN 5000 UNITS SC ×2 (08:01→15:07)
[2025-08-15] MEDS: LOW STRENGTH ASPIRIN 81 MG PO (08:01)
[2025-08-15 08:03] LABS: Platelet Count 94 10^3/uL (130-400)
[2025-08-15 08:17] LABS: Blood Urea Nitrogen 11 mg/dl (7-17); Calcium 8.7 mg/dl (8.4-10.2); Carbon Dioxide 24 mmol/L (22-30); Chloride 111 mmol/L (98-107); Estimated Creatinine Clearance 79 ml/min; Glucose 92 mg/dl (70-99); HDL Cholesterol 44 mg/dl; LDL Cholesterol, Calculated 120 mg/dl; Potassium 3.6 mmol/L (3.5-5.1); Sodium 138 mmol/L (135-145); Very Low Density Lipoprotein 19 mg/dl (0-30); eGFR > 60.00
[2025-08-15 08:40] LABS: Cortisol, Random 6.9 ug/dl
--- NOTE | 2025-08-15 09:01 | W.PN.NEURO.1 ---
Addendum entered and electronically signed by Dominick Barrios MD 08/15/25 10:59:
Studies reviewed.
I have personally examined the patient. I reviewed and agree with the SPECIAL LOAN OFFICER's Note.
My addenda:
Awake, interactive. No acute distress.
Speech unremarkable.
Follows 1-step requests w/ minimal difficulty. No tremor.
Extra-ocular movements grossly intact.
Facial movements full and symmetric. Hearing intact to normal conversational volume.
Normal UE movements bilaterally.
Neck: full ROM.
Chest: no dyspnea
Heart: no JVD
Ext: (-) Clubbing, (-) Cyanosis, (-) Edema
IMPRESSIONS/RECOMMENDATIONS:
Subacute onset of left lower extremity weakness and right hand dysfunction in a patient with previously diagnosed left brachial plexopathy secondary to metastatic stage IV breast cancer.
The patient's nightly ptosis and left lower extremity proximal weakness suggest the possibility of either a myasthenia gravis secondary to paraneoplastic syndrome or multiple metastases causing compression at various levels of the spinal cord
without urinary dysfunction. Patient has had improvement with newly initiated pyridostigmine
Check MRI of brain with and without contrast as planned
Check antibodies kojo to myasthenia gravis
Continue pyridostigmine 30 mg 3 times a day
Consider MRI imaging of the entire spine
Consider EMG study with repetitive stimulation
Check paraneoplastic antibodies
Rehabilitation evaluations and treatment
D/W patient
All questions answered.
Will continue to follow patient.
Original Note:
Today's Communication / Plan
-
.
Neuro Assessment/Plan
Assessment
IMPRESSIONS/RECOMMENDATIONS:
Subacute onset of left lower extremity weakness and right hand dysfunction in a patient with previously diagnosed left brachial plexopathy secondary to metastatic stage IV breast cancer
The patient's nightly ptosis and left lower extremity proximal weakness suggest the possibility of either a myasthenia gravis secondary to paraneoplastic syndrome or multiple metastases causing compression at various levels of the spinal cord
without urinary dysfunction.
The patient feels improved after starting pyridostigmine.
Plan
Check MRI of brain, cervical, thoracic, and lumbar spine w/ and w/o contrast pending.
Continue pyridostigmine 30mg TID as this has improved symptoms; watch for diarrhea and sialorrhea.
Check antibodies kojo to myasthenia gravis, pending.
PT/OT/ST evaluations.
DVT prophlaxis.
Subjective/Objective
Subjective Data
Date of Service: August 15, 2025
Patient reports that her LLE strength has improved and her blurry vision has resolved. She denies any diarrhea or siallorhea. She had a headache yesterday but it resolved.
Objective Data
Vital Signs
Temp Pulse Resp BP Pulse Ox
98 F 90 16 110/59 98
08/15/25 07:00 08/15/25 07:00 08/15/25 07:00 08/15/25 07:00 08/15/25 07:00
Lab Results
08/15/25 07:06
08/15/25 07:06
Sodium 138 mmol/L (135-145) 08/15/25 07:06
Potassium 3.6 mmol/L (3.5-5.1) 08/15/25 07:06
BUN 11 mg/dl (7-17) 08/15/25 07:06
Glucose 92 mg/dl (70-99) 08/15/25 07:06
Calcium 8.7 mg/dl (8.4-10.2) 08/15/25 07:06
LDL Cholesterol, Calc 120 mg/dl 08/15/25 07:06
Patient Allergies
No Known Allergies Allergy (Unverified 11/03/20 15:35)
Review of Systems
-
History Source: Patient
EENT: Negative Blurry Vision, Decreased Vision or Swallowing Difficulty
Neuro: Weakness; Negative Dizzy, Headache, Numbness, Ataxia, Tremors or Speech Problem
Physical Exam
-
General: Well Developed, Well Nourished and No Apparent Distress
Eyes: PERRLA; Negative No Ptosis (bilateral ptosis L>R)
HEENT: Normocephalic and Atraumatic
Neck: Full Range of Motion
GI: Non-distended
Extremities: No Clubbing, No Cyanosis and No Edema
Psych: Unremarkable
Extended Neurological Exam
Mood & Affect: Mood Unremarkable and Affect Unremarkable
Attention Span & Concentration: Awake, Alert and Interactive
Memory: Unremarkable and Able to Recall
Tremor: Hand Tremor Absent and Head Tremor Absent
Speech: Quality Unremarkable, Quantity Unremarkable and Rate of Production Unremarkable
Cranial Nerve II: Right Eye: Visual Ibarra Grossly Intact
Cranial Nerves III, IV, : Extraocular Movement: Extraocular Movement Full in all Directions
Cranial Nerve VII: Facial Symmetry: Reduced (bilateral ptosis L>R)
Cranial Nerve VIII: Hearing: Unremarkable Hearing to Normal Conversational Volume
Muscle Strength, Overall: Other (LLE 4+/5, RLE 5/5, RUE 5-/5, LUE 5/5)
Pronator Drift: Drift in Left Lower Extremity
Coordination: Nlkral-hadm-[id number] Testing Unremarkable
Data Reviewed
-
CT Head: Report Reviewed and Image Reviewed
MRI Head: Pending
MRI Cervical Spine: Pending
MRI Thoracic Spine: Pending
MRI Lumbar Spine: Pending
Labs: Report Reviewed
Reviewed with: Physician and Patient
Medications
-
Active Medications
Generic Name Dose Route Start Last Admin
Trade Name Freq PRN Reason Stop Dose Admin
Acetaminophen 650 mg 08/14/25 06:32 08/14/25 08:19
Acetaminophen 325 Mg Tablet PO 09/11/25 06:31 650 mg
Q4HPRN PRN Administration
Mild Pain / Temp > 101
Aspirin 81 mg 08/14/25 08:00 08/15/25 08:01
Aspirin 81 Mg Chewable Tablet PO 09/11/25 07:59 81 mg
DAILY TAMANNA Administration
Ceftriaxone Sodium 1,000 mg 08/15/25 10:00 08/15/25 09:12
Ceftriaxone 1000 Mg / 10 Ml Vial IV 1,000 mg
Q24H TAMANNA Administration
Heparin Sodium 5,000 units 08/14/25 16:00 08/15/25 08:01
Heparin 5,000 Units/Ml 1 Ml Vial SC 09/11/25 15:59 5,000 units
Q8 TAMANNA Administration
Sodium Chloride 1,000 mls @ 100 mls/hr 08/14/25 18:45 08/15/25 05:35
Nss IV 1,000 mls
.Q10H TAMANNA Administration
Oxycodone HCl 10 mg 08/14/25 06:32
Oxycodone 10 Mg Regular Release Tablet PO 08/28/25 06:31
Q4HPRN PRN
Severe Pain
Polyethylene Glycol 17 grams 08/14/25 15:00 08/15/25 07:59
Polyethylene Glycol Powder 17 Grams Packet PO 09/11/25 14:59 17 grams
DAILY TAMANNA Administration
Pregabalin 150 mg 08/14/25 08:00 08/15/25 08:01
Pregabalin 75 Mg Capsule PO 09/11/25 07:59 150 mg
TID TAMANNA Administration
Pyridostigmine [place] 30 mg 08/14/25 10:00 08/15/25 08:00
Pyridostigmine 60 Mg Tablet PO 09/11/25 09:59 30 mg
TID TAMANNA Administration
Sennosides 8.6 mg 08/14/25 14:45 08/15/25 08:00
Sennosides (Senokot) 8.6 Mg Tablet PO 09/11/25 14:44 8.6 mg
BID TAMANNA Administration
Sodium Chloride 0 flush 08/14/25 07:00
Sodium Chloride 0.9% (Flush) Syringe IV 09/11/25 06:59
PER PROTOCOL TAMANNA
Sterile Water 10 ml 08/15/25 10:00 08/15/25 09:12
Sterile Water For Injection 10 Ml Vial IV 09/12/25 09:59 10 ml
Q24H TAMANNA Administration
Home Medications
�Medication �Instructions �Recorded
alprazolam 0.25 mg tablet 0.25 mg PO HSPRN PRN sleep 01/29/21
ondansetron 8 mg disintegrating 8 mg PO Q8HPRN PRN nausea 01/29/21
tablet (Zofran ODT)
oxycodone 10 mg tablet 20 mg PO Q6HPRN PRN moderate pain 01/29/21
pregabalin 150 mg capsule (Lyrica) 150 mg PO TID Neurological 01/29/21
Condition
aspirin 325 mg tablet 325 mg PO DAILY Blood Clot 08/15/25
Prevention/Tx
--- NOTE | 2025-08-15 09:11 | W.PN.HOSP.TC ---
Addendum entered and electronically signed by Salinas Barnard MD 08/15/25 17:20:
MRI C-spine with +metastasis spinal cord. Lengthy discussions with neurology, oncology, and radiation oncology. Also, discussed at length with patient and son. Started on IV steroids tonight. Patient needs urgent radiation and the best option is
discharge her today and have her start radiation at 7AM tomorrow. Patient and son are in agreement with this plan. Other options are transfer to tertiary care center (might take a while and no guarantees that she'll be accepted), go to rehab (most
of rehabs would not accommodate her to go to radiation which is of paramount importance), and last option is hospice care (patient and family are not ready for this at tis time).
Original Note:
Today's Communication/Plan
-
IV antibiotic. MRI of the brain. MRI spine
Assessment / Plan
Assessment / Plan
Physical exam:
General: Acute on chronically ill
HEENT: Normocephalic, Atraumatic and Moist Mucous Membranes
Respiratory: Clear to Auscultation; Negative Wheezes, Rales or Rhonchi
Cardiac: Regular Rhythm and S1/S2
GI: Soft, Nontender and Nondistended
Musculoskeletal: No Clubbing, No Cyanosis and No Edema
Neuro: Awake, Alert and Oriented, left lower extremity weakness, no cranial nerve deficits.
Psych: Calm
A/P:
Left lower extremity weakness:
Rule out metastatic brain disease versus paraneoplastic syndrome versus spine involvement of metastasis
CT scan of the head no acute intracranial abnormality
MRI of the brain pending with and without contrast
Will also check MRI of the spine including cervical, thoracic, and lumbar spine.
Neurology consult appreciated
Will request oncology evaluation as well-discussed with oncology via [facility] text yesterday
Started on Mestinon empirically by neurology
On aspirin
PT OT eval
Hypotension:
Improving on IV fluid
Cortisol level borderline at 6.9. If issues arise we can do an ACTH stimulation test but will hold off for now and reevaluate.
History of left brachial plexopathy due to metastatic breast cancer:
On Lyrica
Metastatic stage IV breast cancer:
Status postlumpectomy chemo and radiation
Oncology consult
Continue oxycodone as needed
Add bowel regimen
UTI:
Started on IV Rocephin
Follow-up urine culture sensitivity
Continue IV fluids but decrease rate
Thrombocytopenia:
Monitor closely
DVT prophylaxis:
Will add heparin SQ and monitor platelet count
CODE STATUS:
Full code
Anticipated Discharge: 24 - 48 hours
Subjective/Interval History
-
Date of Service: August 15, 2025
Patient blood pressure improving but still on the soft side. Patient remains weak on left lower extremity. Afebrile
Objective Data
-
Labs:
Laboratory Results
08/15/25
07:06
WBC 4.8
Hgb 11.1 L
Hct 32.7 L
Plt Count 94 L
Sodium 138
Potassium 3.6
Chloride 111 H
Carbon Dioxide 24
BUN 11
Creatinine 0.5 L
Glucose 92
Calcium 8.7
Vital Signs:
Vital Signs
Temp Pulse Resp BP Pulse Ox
98 F 90 16 110/59 98
08/15/25 07:00 08/15/25 07:00 08/15/25 07:00 08/15/25 07:00 08/15/25 07:00
I&O
08/14/25 08/15/25 08/16/25
06:59 06:59 06:59
Intake Total 2580 / 2580
Balance 2580 / 2580
[2025-08-15] MEDS: ROCEPHIN 1000 MG IV (09:12)
[2025-08-15] MEDS: STERILE WATER FOR INJECTION 10 ML IV (09:12)
[2025-08-15] MEDS: ATIVAN 1 MG PO (10:45)
[2025-08-15 11:18] VITALS: BP 102/60
--- NOTE | 2025-08-15 12:11 | CON.ONC ---
Addendum entered and electronically signed by Jason Doherty DO 08/15/25 14:18:
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 Have discussed this with radiation oncology and forwarded the MRI. The patient could be
discharged this afternoon on steroids and started treatment at 7 AM and radiation oncology tomorrow. An alternative approach would be to transfer her now to a tertiary center if the logistics are too complicated for the patient.
Original Note:
Consultation
-
Date Consultation Requested: 08/14/25
Date Consultation Performed: 08/15/25
Impression
Impression
Left upper extremity weakness without clear evidence of mets on CT scan
MBC on Enhertu without evidence of progression or typical toxicities
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
Plan
Plan
Agree with MRI of the of the brain with and without rule out leptomeningeal disease
LP for cytology should there be suggestion of leptomeningeal or drop metastases
Additional workup as per neurology
No clear evidence of progressive disease on CT scan of the neck chest abdomen pelvis on 07/25/2025
Patient History
History of Present Illness
Patient is a 65y F with with a history of HER2 positive breast carcinoma receiving Enhertu who presented with increasing balance disturbance and left-sided weakness. Patient states that she slid out of bed about 3 weeks ago and struck her head hard
on a night stand. She believes she may have lost consciousness for a short time. Patient states that she has noted gradually progressive LLE weakness / heaviness since that time. She has had occasional headaches posteriorly. She has had
additional falls due to this weakness - including 2 falls at home today. No recurrent head injury or LOC.
Past-Medical/Surgical History
Past medical history
stage IV Breast Cancer on Chemotherapy and s/p Surgery and XRT
Neuropathy of the LUE
Past Surgical History
Left Lumpectomy
Social History
Tobacco: Non-smoker
Alcohol: None
Drug: None
Family History
Family History: Not pertinent
Patient Medication
�Medication �Instructions �Recorded �Confirmed �Last Taken �Type
alprazolam 0.25 mg tablet 0.25 mg PO HSPRN PRN sleep 01/29/21 08/14/25 08/13/25 History
ondansetron 8 mg disintegrating 8 mg PO Q8HPRN PRN nausea 01/29/21 08/14/25 08/13/25 History
tablet (Zofran ODT)
oxycodone 10 mg tablet 20 mg PO Q6HPRN PRN moderate pain 01/29/21 08/14/25 08/13/25 History
pregabalin 150 mg capsule (Lyrica) 150 mg PO TID Neurological 01/29/21 08/14/25 08/13/25 History
Condition
aspirin 325 mg tablet 325 mg PO DAILY Blood Clot 08/15/25 08/14/25 08/13/25 History
Prevention/Tx
Active Medications
Generic Name Dose Route Start Last Admin
Trade Name Freq PRN Reason Stop Dose Admin
Acetaminophen 650 mg 08/14/25 06:32 08/14/25 08:19
Acetaminophen 325 Mg Tablet PO 09/11/25 06:31 650 mg
Q4HPRN PRN Administration
Mild Pain / Temp > 101
Aspirin 81 mg 08/14/25 08:00 08/15/25 08:01
Aspirin 81 Mg Chewable Tablet PO 09/11/25 07:59 81 mg
DAILY TAMANNA Administration
Ceftriaxone Sodium 1,000 mg 08/15/25 10:00 08/15/25 09:12
Ceftriaxone 1000 Mg / 10 Ml Vial IV 1,000 mg
Q24H TAMANNA Administration
Heparin Sodium 5,000 units 08/14/25 16:00 08/15/25 08:01
Heparin 5,000 Units/Ml 1 Ml Vial SC 09/11/25 15:59 5,000 units
Q8 TAMANNA Administration
Sodium Chloride 1,000 mls @ 85 mls/hr 08/14/25 18:45 08/15/25 05:35
Nss IV 1,000 mls
.[id number] TAMANNA Administration
Oxycodone HCl 10 mg 08/14/25 06:32
Oxycodone 10 Mg Regular Release Tablet PO 08/28/25 06:31
Q4HPRN PRN
Severe Pain
Polyethylene Glycol 17 grams 08/14/25 15:00 08/15/25 07:59
Polyethylene Glycol Powder 17 Grams Packet PO 09/11/25 14:59 17 grams
DAILY TAMANNA Administration
Pregabalin 150 mg 08/14/25 08:00 08/15/25 08:01
Pregabalin 75 Mg Capsule PO 09/11/25 07:59 150 mg
TID TAMANNA Administration
Pyridostigmine [place] 30 mg 08/14/25 10:00 08/15/25 08:00
Pyridostigmine 60 Mg Tablet PO 09/11/25 09:59 30 mg
TID TAMANNA Administration
Sennosides 8.6 mg 08/14/25 14:45 08/15/25 08:00
Sennosides (Senokot) 8.6 Mg Tablet PO 09/11/25 14:44 8.6 mg
BID TAMANNA Administration
Sodium Chloride 0 flush 08/14/25 07:00
Sodium Chloride 0.9% (Flush) Syringe IV 09/11/25 06:59
PER PROTOCOL TAMANNA
Sterile Water 10 ml 08/15/25 10:00 08/15/25 09:12
Sterile Water For Injection 10 Ml Vial IV 09/12/25 09:59 10 ml
Q24H TAMANNA Administration
Review of Systems
-
12 point review of systems fails to elicit additional complaints other than those reviewed in the HPI
Physical Exam
-
Physical Exam
General: Other (65y F in no acute distress.)
HEENT: Moist mucous membranes and PERRLA
Respiratory: Clear; No Wheezes, Rales or Rhonchi
Cardiac: S1/S2 and Regular Rhythm; No Murmur
GI: Soft, Non Tender, Non Distended and Normal Bowel Sounds
Musculoskeletal: No Clubbing, No Cyanosis and No Edema
Neuro: AO x 3 and Other (Markedly decreased strength in the LLE with some distal movement intact. Sensation is intact. LUE with chronic weakness
Labs
Lab Results
WBC 4.8 10^3/uL (4.8-10.8) 08/15/25 07:06
RBC 3.44 10^6/uL (4.20-5.40) L 08/15/25 07:06
Hgb 11.1 g/dL (12.0-16.0) L 08/15/25 07:06
Hct 32.7 % (37.0-47.0) L 08/15/25 07:06
MCV 95.1 fL (81.0-99.0) 08/15/25 07:06
MCH 32.3 pg (27.0-31.0) H 08/15/25 07:06
MCHC 33.9 g/dL (33.0-37.0) 08/15/25 07:06
RDW 14.4 % (11.5-14.5) 08/15/25 07:06
Plt Count 94 10^3/uL (130-400) L 08/15/25 07:06
MPV 11.5 fL (7.4-10.4) H 08/15/25 07:06
Abs Immat Gran (auto) 0.0 10^3/uL (0-0.05) 08/13/25 19:04
Absolute Neuts (auto) 3.6 10^3/uL (1.4-6.5) 08/13/25 19:04
Absolute Lymphs (auto) 1.3 10^3/uL (1.2-3.4) 08/13/25 19:04
Absolute Monos (auto) 0.4 10^3/uL (0.1-0.6) 08/13/25 19:04
Absolute Eos (auto) 0.1 10^3/uL (0-0.7) 08/13/25 19:04
Absolute Basos (auto) 0.0 10^3/uL (0-0.2) 08/13/25 19:04
Immature Gran % 0.2 % (0-0.5) 08/13/25 19:04
Neutrophils % 66.2 % (42.2-75.2) 08/13/25 19:04
Lymphocytes % 23.3 % (20.5-51.1) 08/13/25 19:04
Monocytes % 7.5 % (1.7-9.3) 08/13/25 19:04
Eosinophils % 2.4 % (0-6) 08/13/25 19:04
Basophils % 0.4 % (0-2) 08/13/25 19:04
Creatinine 0.5 mg/dL (0.6-1.0) L 08/15/25 07:06
Vital Signs
Vital Signs
Temp Pulse Resp BP Pulse Ox
98.5 F 85 17 102/60 99
08/15/25 11:18 08/15/25 11:18 08/15/25 11:18 08/15/25 11:18 08/15/25 11:18
[2025-08-15 14:41] VITALS: BP 112/51; O2SAT 96
[2025-08-15 14:44] VITALS: BP 112/51; O2SAT 96
[2025-08-15] MEDS: DECADRON 10 MG IV (14:58)
[2025-08-15] MEDS: FLUZONE HIGH-DOSE 2025-26 0.5 ML IM (15:11)
[2025-08-15 15:15] VITALS: BP 156/88
[2025-08-17 06:34] LABS: MuSK IgG Ab CBA IFA, Serum <1:10 (<1:10)
== END 2025-08-15 18:36 | disposition home or self-care (01) | DRG 598 ==
LOC: 4 WEST ACU 03:10
PROVIDERS: Physician Assistant; Registered Nurse Critical Care Medicine; Student in an Organized Health Care Education/Training Program; ADMITTING PHYSICIAN Hospitalist; ATTENDING PHYSICIAN Hospitalist; CONSULT PHYSICIAN Psychiatry & Neurology Neurology; EMERGENCY PHYSICIAN Emergency Medicine; OTHER PHYSICIAN Internal Medicine Hematology & Oncology
PROC: 3E02340 Introduction of Influenza Vaccine into Muscle, Percutaneous Approach (ICD-10-PCS; 2025-08-15)
DX: C50.919 Malignant neoplasm of unspecified site of unspecified female breast (principal); C78.00 Secondary malignant neoplasm of unspecified lung; G73.3 Myasthenic syndromes in other diseases classified elsewhere; Z79.82 Long term (current) use of aspirin; Z92.3 Personal history of irradiation; G89.29 Other chronic pain; E86.0 Dehydration; Z17.31 Human epidermal growth factor receptor 2 positive status; Z96.649 Presence of unspecified artificial hip joint; Z79.899 Other long term (current) drug therapy; D69.6 Thrombocytopenia, unspecified; Z11.52 Encounter for screening for COVID-19; Z23 Encounter for immunization
CPT/HCPCS: 70450; 70553; 71045; 72156; 80048; 80053; 80061; 81003; 81015; 82533; 83036; 85025; 85027; 86041; 86366; 87040; 87077; 87086; 87186; 87502; 87811; 97163; 97167; 97530; 99284; A9575

== ENCOUNTER → 2025-08-23 19:10 | Outpatient (REF) | payer MEDICARE, MEDICAID, SELFPAY | LOC: MRI 19:10 | PROVIDERS: ATTENDING PHYSICIAN Radiology Radiation Oncology; FAMILY PHYSICIAN Family Medicine | DX: C41.2 Malignant neoplasm of vertebral column (principal) | CPT/HCPCS: 72158; A9575 ==